=== PATIENT | male | born 2000 | race Caucasian/White ===

== ENCOUNTER 2023-03-13 08:53 | Outpatient (AMB) | payer OTHER, SELFPAY ==
--- NOTE | 2023-03-13 08:54 | A.OFFPC_ITS ---
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 Transferring care from [facility]. Medical records have not been requested and have not received. Stock Preparer Required: No Sales Support Advisor: Not Required per policy Accompanied by: Self / Same As Patient Allergies No Known Allergies Allergy (Verified 03/13/23 09:10) Medication List - Last Reconciled 03/13/23 by AMAIRANI Cho No Known Home Meds Tobacco use date assessed: 03/13/23 Dental Screening Dental Screen Date: 03/13/23 Did you have a dental visit in the last 12 months?: Yes Did you have a dental problem in the last 6 months where you did not have access to dental care?: No Was dental information given to patient?: Patient has dentist HPI HPI Comments History of Present Illness Details 22-year-old male new patient presents to [facility] to establish care. Past m edical history significant for ADHD. Patient reports has not been on medication for his ADHD and many years. Patient reports overall doing well denies any acute concerns. Denies chest pain, palpitations, shortness of breath and syncope. Denies any bowel or bladder issues. Eye exam: Recommeded every couple years unknown last pcp; [facility] [place]. Flu shot recommended annual, will obtain immunization records from [place] to evaluate for status last tetanus shot. [facility] Surgical History No pertinent past surgical history Family History (Updated 03/13/23 @ 09:10 by AMAIRANI Cho) Mother No problems noted. Father No problems noted. Social History (Updated 03/13/23 @ 09:11 by AMAIRANI Cho) Housing: House Alcohol intake: current Alcohol intake frequency: a few times a month Patient Tobacco Use Status: Never used Tobacco e-Cigarette/Vaping Use: Never Used Second Hand Smoke Exposure: No service: No Current occupational status: employed Current occupation: Construction Cognitive needs: No Hearing needs: No Vision needs: No Questionnaire PHQ-9 Over the last 2 weeks, how often have you been bothered by any of the following problems? 1. Little interest or pleasure in doing things: not at all 2. Feeling down, depressed, or hopeless: not at all 3. Trouble falling or staying asleep, or sleeping too much: not at all 4. Feeling tired or having little energy: not at all 5. Poor appetite or overeating: not at all 6. Feeling bad about yourself - or that you are a failure or have let yourself or your family down: not at all 7. Trouble concentrating on things, such as reading the newspaper or watching television: not at all 8. Moving or speaking so slowly that other people could have noticed. Or the opposite - being so fidgety or restless that you have been moving around a lot more than usual: not at all 9. Thoughts that you would be better off or of hurting yourself in some way: not at all Total score: 0 Depression Screening Interpretation: Negative 73961 - PHQ-9 Billing: Yes Source: Developed by Drs. Roge Tyson, Kera Cardona, Roland Greenfield and colleagues, with an educational florian from [employer]. Thrive Questionnaire Date Thrive assessed: 03/13/23 I am a: Patient What is your living situation today?: I have a steady place to live Within the past 12 months, did the food you bought not last and you didn't have the money to get more?: Never true Within the past 12 months, did you worry whether your food would run out before you got money to buy more?: Never true Do you have trouble paying for medicines?: No Do you have trouble getting transportation to medical appointments?: No Do you have trouble paying your heating and electricity bill?: No Do you have trouble taking care of your child, family member or friend?: No Do you have trouble with day-to-day activities such as bathing, preparing meals, shopping, managing finances, etc.?: No Are you currently unemployed and looking for a job?: No Are you interested in more education?: No Currently or been in a relationship where the following occur: no concerns reported AUDIT C Alcohol Use Questionnaire (AUDIT-C) 1. How often do you have a drink containing alcohol?: Monthly or less Total Score: 1 JAYSHREE-7 AMB Questionnaire JAYSHREE-7 Date JAYSHREE - 7 assessed: 03/13/23 Feeling nervous, anxious, or on edge: 0 = Not at all Not being able to stop or control worryin = Not at all Worrying too much about different things: 0 = Not at all Trouble relaxin = Not at all Being so restless that it is hard to sit still: 0 = Not at all Becoming easily annoyed or irritable: 0 = Not at all Feeling afraid as if something awful might happen: 0 = Not at all Total JAYSHREE-7 score (0-4 normal; 5-9 mild; 10-14 moderate; 15-21 severe): 0 Source: Developed by Drs. Roge Tyson, Kera Cardona, Roland Greenfield and colleagues, with an educational florian from [employer]. JAYSHREE-7 Assessment Billing JAYSHREE-7 Assessment Tool: JAYSHREE-7 Assessment 87783 Review of Systems Const Denies chills, Denies fatigue, Denies fever(s) and Denies poor appetite Eyes Denies no additional complaints ENT Reports Normal hearing present Card Denies chest pain, Denies syncope, Denies rapid heart rate and Denies dyspnea Resp Denies cough and Denies dyspnea GI Denies change in stool character, Denies constipation, Denies diarrhea, Denies nausea and Denies vomiting Denies dysuria, Denies urinary frequency and Denies urinary urgency Neuro Reports Normal hearing present, Denies confusion and Denies syncope Psych Denies confusion Endo Denies fatigue Physical exam (Primary Care) Vital Signs: Last Vital Signs Pulse 97 03/13/23 08:56 BP 108/60 03/13/23 08:56 Pulse Ox 96 03/13/23 08:56 Oxygen Delivery Method Room Air 03/13/23 08:56 BMI result Body Mass Index 25.6 Tobacco/Smoking Status: Tobacco use Status Tobacco use date assessed 03/13/23 03/13/23 08:56 Patient Tobacco Use Status Never used Tobacco 03/13/23 09:03 e-Cigarette/Vaping Use Never Used 03/13/23 09:03 PHQ-9: PHQ-9 Score PHQ-9: Total score 0 03/13/23 08:56 Depression Screening Interpretation: Negative Thrive Assessment: Date of Thrive Assessment Date Thrive assessed 03/13/23 03/13/23 08:56 Currently or been in a relationship where the following occur: no concerns reported Const General: No confusion Orientation/consciousness: No confusion HENMT Head: Yes normocephalic and Yes atraumatic Ears: external ears normal and TM's normal bilaterally General nose exam: Normal external nose present and Normal nasal mucous membranes and turbinates present Face and sinus: Yes normal facial exam and Yes sinuses nontender Mouth: moist mucous membranes Throat: Yes tonsils normal Eyes Conjunctivae: conjunctivae normal Sclerae: sclerae normal Pupils: Equal, round and reactive pupils present and Pupils normal by confrontation EOM: EOMs intact bilaterally Direct Ophthalmoscopy: normal light reflex Neck Neck: Yes no lymphadenopathy and Yes supple Thyroid: Thyroid normal Chest Chest palpation & inspection: normal inspection of the chest Resp Effort & Inspection: normal respiratory effort Auscultation: clear to auscultation bilaterally, no crackles, no rhonchi and no wheezes Cardio Rate: regular rate Rhythm: regular rhythm Peripheral pulses: radial pulses present and dorsalis pedis present GI Inspection: Yes normal to inspection Palpation (GI): Soft to palpation, nontender and No hepatosplenomegaly present Auscultation: normoactive bowel sounds Skin General skin exam: no rashes or lesions noted Neuro General: No confusion Cranial nerves: Yes Equal, round and reactive pupils present and Yes Normal hearing present Cognition (Neuro): normal cognition Gait exam (Neuro): Normal gait present Motor exam (neuro): 5/5 motor strength present throughout Deep tendon reflexes (DTR's): Right brachioradialis reflex intensity grade: 2+, Left brachioradialis reflex intensity grade: 2+, Right patellar reflex intensity grade: 2+ and Left patellar reflex intensity grade: 2+ Extrem General: No edema Assessment and Plan Assessment & Plan (1) ADHD: Code(s): F90.9 - Attention-deficit hyperactivity disorder, unspecified type (2) Physical exam, annual: Code(s): Z00.00 - Encounter for general adult medical examination without abnormal findings Plan: Recommend 1 year follow-up. Discussed basic blood work patient such as CMP and TSH level. Patient declined at this time. Plan Follow-up in 1 year for physical exam or sooner if needed. Coding Level of Care Code New Pt Prev Care 18-39yr([id number] Diagnoses ADHD F90.9 Physical exam, annual Z00.00 Additional Codes JAYSHREE-7 Assessment Billing - JAYSHREE-7 Assessment Tool: JAYSHREE-7 Assessment 63024 ([id number])
[2023-03-13 08:56] VITALS: BP 108/60; PULSE 97; O2SAT 96; BMI 25.6
== END 2023-03-13 09:18 | disposition home or self-care (01) ==
PROVIDERS: PCP Nurse Practitioner Family; Visit Provider Nurse Practitioner Family
DX: Z00.00 Encounter for general adult medical examination without abnormal findings (principal); F90.9 Attention-deficit hyperactivity disorder, unspecified type
CPT/HCPCS: 99385

== ENCOUNTER 2024-03-23 13:50 | Outpatient (AMB) | payer OTHER, SELFPAY ==
--- NOTE | 2024-03-23 13:52 | A.OFFPC_ITS ---
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 Intake Note: New patient to establish care Allergies No Known Allergies Allergy (Verified 03/23/24 13:55) Medication List - [facility]23[facility] No Known Home Meds Tobacco use date assessed: 03/23/24 Dental Screening Dental Screen Date: 03/23/24 Did you have a dental visit in the last 12 months?: No Did you have a dental problem in the last 6 months where you did not have access to dental care?: No Was dental information given to patient?: Patient has dentist HPI HPI Comments History of Present Illness Details 23 y/o M with ADHD, JAYSHREE, keratosis pilar is, bunion R foot, tinea pedis Social: paving and construction; 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 4 cats. Family hx: Mom and healthy. Siblings healthy. Denies sig family hx. Surgical hx: Denies Health Maintenance: Tdap today declined flu Specialists: counseling Here today to est care & for CPE. Was at [facility] in the past for PCP, records not available. ADHD was on meds in the past; has been w/o PCP. At this time, using OTC meds from [facility] but this is not working MDD/JAYSHREE: would like a referral for therapist. Feels stressed. Feels anxious. Has had a therapist in the past. Denies SI/HI. Has low motivation at times, losing interest in things. Working nights. This has affected his ability to hang out with friends/family. Sleeps fine. Using OTC antifunal for tinea pedis R foot + effect Bunion R foot, hurts sometimes. Appetite: ok. Wt stable, has gained some. Exercise: has physical job GI/: denies issues Eyes: vision is normal w/o glasses Seatbelt in the car Sexually: woman; denies STD concerns Plan Tdap today Check screening labs today Use exfoliating wash and moisturizer for arms cont OTC antifungal for feet Wear wide toe shoes; prevent pressure. Asked him to get me previous PCP records and info about ADHD and meds. Once i get this can discuss restarting meds for ADHD. RTO in 3-4 weeks to fu on aDHD/mood, sooner PRN This note is constructed using voice recognition software. While every effort has been made to ensure accuracy in senior asp net developer, still errors may have been included Sometimes, these errors may affect the content or meaning of the given sentence . [facility] Medical History (Updated 03/23/24 @ 15:10 by Yashira Mcconnell MA) No pertinent family history No pertinent past medical history Surgical History No pertinent past surgical history Family History (Updated 03/13/23 @ 09:10 by AMAIRANI Cho) Mother No problems noted. Father No problems noted. Social History (Updated 03/23/24 @ 15:11 by Yashira Mcconnell MA) Household Members: Other Household Members Other:: parents Housing: House Are you a primary manager care to a significant other at home: No Do you presently have visiting nurse or other home services: No Alcohol intake: current Alcohol intake frequency: a few times a month Patient Tobacco Use Status: Never used Tobacco e-Cigarette/Vaping Use: Never Used Second Hand Smoke Exposure: No service: No Current occupational status: employed Current occupation: Construction Cognitive needs: No Hearing needs: No Vision needs: No Questionnaire PHQ-9 Over the last 2 weeks, how often have you been bothered by any of the following problems? 2. Feeling down, depressed, or hopeless: not at all 3. Trouble falling or staying asleep, or sleeping too much: several days 4. Feeling tired or having little energy: several days 5. Poor appetite or overeating: more than half the days 6. Feeling bad about yourself - or that you are a failure or have let yourself or your family down: not at all 7. Trouble concentrating on things, such as reading the newspaper or watching television: not at all 8. Moving or speaking so slowly that other people could have noticed. Or the opposite - being so fidgety or restless that you have been moving around a lot more than usual: not at all 9. Thoughts that you would be better off or of hurting yourself in some way: not at all Depression Screening Interpretation: Negative Depression Screening Done: Yes 23345 - PHQ-9 Billing: Yes Source: Developed by Drs. Roge Tyson, Kera Cardona, Roland Greenfield and colleagues, with an educational florian from [employer]. Thrive Questionnaire Date Thrive assessed: 03/23/24 I am a: Patient What is your living situation today?: I have a steady place to live Within the past 12 months, did the food you bought not last and you didn't have the money to get more?: Never true Within the past 12 months, did you worry whether your food would run out before you got money to buy more?: Never true Do you have trouble paying for medicines?: No Do you have trouble getting transportation to medical appointments?: No Do you have trouble paying your heating and electricity bill?: No Do you have trouble taking care of your child, family member or friend?: No Do you have trouble with day-to-day activities such as bathing, preparing meals, shopping, managing finances, etc.?: No Are you currently unemployed and looking for a job?: No Are you interested in more education?: No Please select the resources that you would like help with: None Currently or been in a relationship where the following occur: No concerns reported THRIVE Score: 0 AUDIT C Alcohol Use Questionnaire (AUDIT-C) 1. How often do you have a drink containing alcohol?: 2-4 times a month 2. How many drinks containing alcohol do you have on a typical day when you are drinking?: 1 or 2 3. How often do you have six or more drinks on one occasion?: Never Total Score: 2 Score Reviewed/Action Taken: Yes JAYSHREE-7 AMB Questionnaire JAYSHREE-7 Date JAYSHREE - 7 assessed: 03/23/24 Feeling nervous, anxious, or on edge: 0 = Not at all Not being able to stop or control worryin = Not at all Worrying too much about different things: 1 = Several days Trouble relaxin = Not at all Being so restless that it is hard to sit still: 0 = Not at all Becoming easily annoyed or irritable: 0 = Not at all Feeling afraid as if something awful might happen: 0 = Not at all Total JAYSHREE-7 score (0-4 normal; 5-9 mild; 10-14 moderate; 15-21 severe): 1 Source: Developed by Drs. Roge Tyson, Kera Cardona, Roland Greenfield and colleagues, with an educational florian from [employer]. JAYSHREE-7 Assessment Billing JAYSHREE-7 Assessment Tool: JAYSHREE-7 Assessment 25775 Review of Systems Const Details: Constitutional: Denies fever. Skin: Denies rash. Eye: Denies eye pain. ENMT: Denies sore throat and nasal congestion. Respiratory: Denies shortness of breath and cough. Gastrointestinal: Denies nausea, vomiting or abdominal pain. Cardiovascular: Denies chest pain and syncope. Genitourinary: Denies dysuria. Musculoskeletal: Denies back pain and extremity pain. Neurologic: Denies headaches, confusion, and weakness. Psychiatric: Denies suicidal thoughts and substance abuse. Allergy/ Immunologic: Denies impaired immunity. Physical exam (Primary Care) Vital Signs: Last Vital Signs Pulse 58 03/23/24 14:10 Resp 14 03/23/24 14:10 BP 118/68 03/23/24 14:10 Pulse Ox 98 03/23/24 14:10 Oxygen Delivery Method Room Air 03/23/24 14:10 BMI result Body Mass Index 27.1 BMI Assessment/Plan discussion: High BMI High, discussed plan: lifestyle Tobacco/Smoking Status: Tobacco use Status Tobacco use date assessed 03/23/24 03/23/24 13:58 Patient Tobacco Use Status Never used Tobacco 03/23/24 13:57 e-Cigarette/Vaping Use Never Used 03/23/24 13:57 Depression Screening Interpretation: Negative Thrive Assessment: Date of Thrive Assessment Date Thrive assessed 03/13/23 03/23/24 13:53 Currently or been in a relationship where the following occur: No concerns reported Const Other: General: Well developed, well nourished, in no acute distress. Appears stated age. Head: Normocephalic, atraumatic. Eyes: Pupils are equal, round and reactive to light and accommodation. Conjunctivae are clear. Vision grossly normal. Ears: TMs clear AU, EACS WNL Nose: Patent, without discharge. Mouth: There are no ulcers or lesions noted. No inflammation, no post nasal drip, no plaques nor exudates. Neck: Supple, no adenopathy or thyromegaly. Lungs: Clear to auscultation bilaterally. No rales, rhonchi or wheeze noted. Good air flow in all mera. Heart: Regular rate and rhythm. No murmurs, click, rubs or gallops are noted. Abdomen: Bowel sounds present in all quadrants. The abdomen is soft, nontender, with no masses or organomegaly noted. No hernias are noted. Musculoskeletal: Joints are nontender, without swelling, redness, or effusions. Range of motion is observed to be normal. Pulses: Peripheral pulses are equal and palpable bilaterally. Extremities: No clubbing, cyanosis nor edema is noted. Bunion right foot Neurologic: Gait and station normal. Cranial Nerves 2-12 intact. Motor strength grossly symmetrical and intact. No sensory loss. Balance normal. Skin: No rashes, ulcers, or lesions noted. Turgor is good. Skin color is good. Hair and nails are without abnormalities. Keratosis pilaris bilat upper arms, tinea pedis a 2nd toe of right foot Psych: Normal eye contact, affect and mood appropriate, and normal interactions. Patient is alert and appropriate to context. Immunizations Boostrix Tdap 2.5 Lf unit-8 mcg-5 Lf/0.5 mL intramuscular syringe Performing Provider: GLORIA Boyce Performing Location: [facility] Administered by: Lillie Velásquez RN on 03/23/24 14:57 Dose Route Admin Location Dispensed Lot Number Expiration Date NDC Product Analyst 0.5 mL IM Right Deltoid 0.5 mL [id number] 03/12/25 20109-970-34 [email or web address] Given Date VIS Provided VIS Publication Date 03/23/24 Single Vaccine 21 Eligibility Eligibility Date Funding Source Not [place] Eligible 03/23/24 Private Coding Level of Care Code New Pt Prev Care 18-39yr(09638 Diagnoses Encounter for general adult medical examination without abnormal findings Z00.00 Mild episode of recurrent major depressive disorder F33.0 Major depression episode severity: mild JAYSHREE (generalized anxiety disorder) F41.1 Attention deficit hyperactivity disorder (ADHD), predominantly inattentive type F90.0 Attention deficit-hyperactivity disorder type: predominantly inattentive Keratosis pilaris L85.8 Bunion, right M21.611 Tinea pedis of right foot B35.3 Laterality: right Additional Codes JAYSHREE-7 Assessment Billing - JAYSHREE-7 Assessment Tool: JAYSHREE-7 Assessment 11459 ([id number]) Assessment & Plan Assessment & Plan (1) Encounter for general adult medical examination without abnormal findings: Code(s): Z00.00 - Encounter for general adult medical examination without abnormal findings Plan: . (2) MDD (major depressive disorder), recurrent episode: Code(s): F33.9 - Major depressive disorder, recurrent, unspecified Category: Medical Qualifiers: Major depression episode severity: mild Qualified Code(s): F33.0 - Major depressive disorder, recurrent, mild Plan: . (3) JAYSHREE (generalized anxiety disorder): Code(s): F41.1 - Generalized anxiety disorder Category: Medical Plan: . (4) ADHD: Code(s): F90.9 - Attention-deficit hyperactivity disorder, unspecified type Category: Medical Qualifiers: Attention deficit-hyperactivity disorder type: predominantly inattentive Qualified Code(s): F90.0 - Attention-deficit hyperactivity disorder, predominantly inattentive type Plan: . (5) Keratosis pilaris: Code(s): L85.8 - Other specified epidermal thickening Category: Medical Plan: . (6) Bunion, right: Code(s): M21.611 - Bunion of right foot Category: Medical Plan: . (7) Tinea pedis: Code(s): B35.3 - Tinea pedis Category: Medical Qualifiers: Laterality: right Qualified Code(s): B35.3 - Tinea pedis Plan: . Patient Instructions: Walk-In Care (Urgent Care): We Make it Easy Walk-in for urgent medical issues such as: ? Seasonal Allergies ? Insect Bites ? Cough ? Diarrhea ? Acute Asthma Attacks ? Back, Knee or Joint Pain ? Ear Infection ? Fever without a Rash ? Headaches ? Nausea ? [place], Rash or Skin Irritation ? Sore Throat ? Sports Physicals ? Vomiting Most insurances are accepted. Patients do not need to be part of the [facility] to seek care at the walk-in clinic. Locations [facility] [address] [place] [address] ? [phone] [facility] in [place] provides services to ages 18 and over. Open Thursday-Thursday: 8 a.m. to 5 p.m. and Thursday: 9 a.m. to 3 p.m.* *Hours may vary due to staffing availability. To confirm Walk-In Care hours in [place], please call [phone]. [address] [place] [address] ? [phone] [facility] in [place] provides services to ages 12 and over. Open Thursday-Thursday: 8 a.m. to 5 p.m. Hours may vary due to staffing availability. To confirm Walk-In Care hours in [place], please call [phone]. LABORATORY SERVICES: [facility] Lab ? Primary Location [address] [place] [address] Thursday through Thursday 6:00 AM ? 5:00 PM Thursday 7:00 AM ? 11:00 AM* [phone] The [facility] Lab is centrally located near the front entrance of the [facility] for easy outpatient access. Convenient parking is provided for outpatients. *Hours may vary due to staffing availability. To confirm Laboratory hours for any location, please call [phone]. Offsite Location For your convenience, we offer offsite laboratory draw stations at the following locations: [address] [place] [address] ? [address], [address] Thursday through Thursday 7:30 AM ? 1:00 PM* [phone] *Hours may vary due to staffing availability. To confirm Laboratory hours for any location, please call [phone]. [place] ? [address] Thursday through Thursday 6:00 AM ? 3:30 PM* Thursday 6:30 AM ? 3 PM* [phone] *Hours may vary due to staffing availability. To confirm Laboratory hours for any location, please call [phone] [place] [address] Thursday through Thursday 7:30 AM ? 4:00 PM* [phone] *Hours may vary due to staffing availability. To confirm Laboratory hours for any location, please call [phone] [place] [address] Thursday through 9:00 AM ? 4:00 PM* *Hours may vary due to staffing availability. To confirm Laboratory hours for any location, please call [phone]. Appointments are not necessary. Walk-ins are welcome. Like all the departments throughout the [facility], our Lab undergoes frequent reviews to ensure the quality and accuracy of test results, and our staff takes special pride in its status as a nationally accredited facility. Patient Portal: ONE PATIENT. ONE RECORD. BETTER CARE. [facility] has a fully integrated, cutting- edge mobile electronic health information system that has revolutionized the way we care for our patients and manage our organization. This system improves communication and coordination enabling us to provide safe, higher-quality care, and an overall positive experience for staff and patients. Our first priority, as always, is to deliver the highest quality care possible. The system is running in the background supporting that priority. This portal is for all [facility] and [facility] services and practices. If you are experiencing any technical difficulties with enrolling or logging into the Patient Portal please complete the [facility] Patient Portal Technical Support Form. [facility] now offers a new secure on-line interactive tool for patients to review their health information ? Patient Portal. This interactive web portal will enable patients and their families to take an active role in their care by providing easy, secure access to their health information via the internet. The Patient Portal provides patients with instant access to their health information, including laboratory results, medications, allergies, demographic information, visit history, and more. In addition to managing their own care, parents and health care proxies with authorized consent will appreciate the ability to access the records of those individuals for whom they provide care. Please note: if you wish to gain access (Proxy) to another patient?s portal, you will be required to come to the Medical Records Department in person at [facility]. Both the patient giving proxy access and the proxy will need to provide photo identification and complete the appropriate authorization. The Patient Portal also allows track their appointments online. The [facility] Patient Portal also saves patients time by allowing them to submit updates to their demographic and contact information prior to their visits. Portal email notifications will also alert patients to any new activity on their portal, such as test results and new appointments. In order to initially enroll in the [facility] Patient Portal, you will need to enter some required information including the following: ? your [facility] Medical Record number ? your personal home email address ? name ? date of Please note: In order to enroll in the [facility] Patient Portal, we need to have your email address on file in your electronic medical record. The email address needs to be specific for one person (yourself) in order for your Portal enrollment to be successful. You can update your email address in person with our Registration staff when you are registering for a hospital visit. Otherwise, you will need to come to the Health Information Management (Medical Records) Department at [facility]. We are open from Thursday ? Thursday from 7:30 a.m. ? 4:30 p.m. You will be required to present a photo id. Once you have successfully enrolled in the Patient Portal, you will receive a one-time user id and password for the Portal, sent to your email address. This will allow you to log into the Patient Portal within 99 hrs and reset your own logon id and password, and define personal security questions. Once your permanent login and password have been set, you can log into the [facility] Patient Portal at any time via the blue button above or from the Portal Logon button on any page of the [facility] website. [facility] encourage all of our patients to enroll in Patient Portal as it presents a valuable opportunity for patients and their families to actively participate in their care and stay healthy Welcome to [facility]. We look forward to working with you. Health screenings for men ages 40 to 64 You should visit your health care provider regularly, even if you feel healthy. The purpose of these visits is to: Screen for medical issues Assess your risk for future medical problems Encourage a healthy lifestyle Update vaccinations and other preventive care services Help you get to know your provider in case of an illness Information Even if you feel fine, you should still see your provider for regular checkups. These visits can help you avoid problems in the future. For example, the only way to find out if you have high blood pressure is to have it checked regularly. High blood sugar and high cholesterol level also may not have any symptoms in the early stages. Simple blood tests can check for these conditions. There are specific times when you should see your provider or receive specific health screenings. The [place] Preventive Services Task Force publishes a list of recommended screenings. Below are screening guidelines for men ages 40 to 64. BLOOD PRESSURE SCREENING Have your blood pressure checked at least once every year. Watch for blood pressure screenings in your area. Ask your provider if you can stop in to have your blood pressure checked. Ask your provider if you need your blood pressure checked more often if: You have diabetes, heart disease, kidney problems, or are overweight or have certain other health conditions You have a first-degree relative with high blood pressure You are Black Your blood pressure top number is from 120 to 129 mm Hg, or the bottom number is from 70 to 79 mm Hg If the top number is 130 mm Hg or greater or the bottom number is 80 mm Hg or greater, this is considered stage 1 hypertension. Schedule an appointment with your provider to learn how you can lower your blood pressure. Effects of age on blood pressure CHOLESTEROL SCREENING Cholesterol screening should begin at age 35 for men with no known risk factors for coronary heart disease. Repeat cholesterol screening should take place: Every 5 years for men with normal cholesterol levels More often if changes occur in lifestyle (including weight gain and diet) More often if you have diabetes, heart disease, kidney problems, or certain other conditions COLORECTAL CANCER SCREENING If you are under age 45, talk to your provider about getting screened. You may need to be screened if you have a strong family history of colon cancer or polyps. Screening may also be considered if you have risk factors such as a history of inflammatory bowel disease or polyps. If you are age 45 to 75, you should be screened for colorectal cancer. There are several screening tests available: A stool-based fecal occult blood (gFOBT) or fecal immunochemical test (FIT) every year A stool sDNA test every 1 to 3 years Flexible sigmoidoscopy every 5 years or every 10 years with stool testing FIT done every year CT colonography (virtual colonoscopy) every 5 years Colonoscopy every 10 years You may need a colonoscopy more often if you have risk factors for colorectal cancer, such as: Ulcerative colitis A personal or family history of colorectal cancer A history of growths in your colon called adenomatous polyps DENTAL EXAM Go to the dentist once or twice every year for an exam and cleaning. Your dentist will evaluate if you have a need for more frequent visits. DIABETES SCREENING All adults who do not have risk factors for diabetes should be screened starting at age 35 and repeated every 3 years. If you have other risk factors for diabetes, such as a first degree relative with diabetes, overweight or obesity, high blood pressure, prediabetes, or a history of heart disease, you may be tested more often. If you are overweight and have other risk factors, such as high blood pressure and are planning to become , screening is recommended. EYE EXAM Have an eye exam every 2 to 4 years ages 40 to 54 and every 1 to 3 years ages 55 to 64. Your provider may recommend more frequent eye exams if you have vision problems or glaucoma risk. Have an eye exam that includes an examination of your retina (back of your eye) at least every year if you have diabetes. IMMUNIZATIONS Commonly needed vaccines include: Flu shot: get one every year COVID-19 vaccine: ask your provider what is best for you Tetanus-diphtheria and acellular pertussis (Tdap) vaccine: have as one of your tetanus-diphtheria vaccines if you did not receive it as an adolescent Tetanus-diphtheria: have a booster (or Tdap) every 10 years Varicella vaccine: receive 2 doses if you never had chickenpox or the varicella vaccine and were born in 1980 or after Hepatitis B vaccine: receive 2, 3, or 4 doses, depending on your exact circumstances, if you did not receive these as a child or adolescent, until age 59 Shingles (herpes zoster) vaccine: at or after age 50 Ask your provider if you should receive other immunizations, especially if you have certain medical conditions, such as diabetes or are at increased risk for some diseases such as pneumonia. INFECTIOUS DISEASE SCREENING Screening for hepatitis C: all adults ages 18 to 79 should get a one-time test for hepatitis C. Screening for human immunodeficiency virus (HIV): all people ages 15 to 65 should get a one-time test for HIV. Depending on your lifestyle and medical history, you may need to be screened for infections such as syphilis, chlamydia, and other infections. LUNG CANCER SCREENING You should have an annual screening for lung cancer with low-dose computed tomography (LDCT) if: You are age 50 to 80 years AND You have a 20 pack-year smoking history AND You currently smoke or have quit within the past 15 years OSTEOPOROSIS SCREENING If you are age 50 to 64 and have risk factors for osteoporosis, you should discuss screening with your provider. Risk factors can include long-term steroid use, low body weight, smoking, heavy alcohol use, having a fracture after age 50, or a family history of hip fracture or osteoporosis. Osteoporosis PHYSICAL EXAM All adults should visit their provider from time to time, even if they are healthy. The purpose of these visits is to: Screen for diseases Assess risk of future medical problems Encourage a healthy lifestyle Update vaccinations and other preventive care services Maintain a relationship with a provider in case of an illness Your height, weight, and body mass index (BMI) should be checked at every exam. During your exam, your provider may ask you about: Depression and anxiety Diet and exercise Alcohol and tobacco use Safety, such as use of seat belts and smoke detectors Your medicines and risk for interactions PROSTATE CANCER SCREENING If you're 55 through 69 years old, before having the test, talk to your provider about the pros and cons of having a PSA test. Ask about: Whether screening decreases your chance of dying from prostate cancer. Whether there is any harm from prostate cancer screening, such as side effects from testing or overtreatment of cancer when discovered. Whether you have a higher risk of prostate cancer than others. If you are age 55 or younger, screening is not generally recommended. You should talk with your provider about if you have a higher risk for prostate cancer. Risk factors include: Having a family history of prostate cancer (especially a brother or father) Being If you choose to be tested, the PSA blood test is repeated over time (yearly or less often), though the best frequency is not known. Prostate examinations are no longer routinely done on men with no symptoms. Prostate cancer SKIN EXAM Your provider may check your skin for signs of skin cancer, especially if you're at high risk. People at high risk include those who have had skin cancer before, have close relatives with skin cancer, or have a weakened immune system. TESTICULAR EXAM The [place] Preventive Services Task Force (USPSTF) now recommends against performing testicular self-exams. Doing testicular self-exams has been shown to have little to no benefit.
[2024-03-23 14:10] VITALS: BP 118/68; PULSE 58; RESP 14; O2SAT 98; BMI 27.1
== END 2024-03-23 14:56 | disposition home or self-care (01) ==
PROVIDERS: PCP Nurse Practitioner Family; Visit Provider Nurse Practitioner Family
DX: Z00.00 Encounter for general adult medical examination without abnormal findings (principal); F33.0 Major depressive disorder, recurrent, mild; F41.1 Generalized anxiety disorder; F90.0 Attention-deficit hyperactivity disorder, predominantly inattentive type; L85.8 Other specified epidermal thickening; M21.611 Bunion of right foot; B35.3 Tinea pedis; Z23 Encounter for immunization

== ENCOUNTER → 2024-03-23 13:50 | Outpatient (BNVA) | payer BC, SELFPAY | PROVIDERS: PCP Nurse Practitioner Family; Visit Provider Nurse Practitioner Family | DX: Z00.00 Encounter for general adult medical examination without abnormal findings (principal); F33.0 Major depressive disorder, recurrent, mild; F41.1 Generalized anxiety disorder; F90.0 Attention-deficit hyperactivity disorder, predominantly inattentive type; L85.8 Other specified epidermal thickening; M21.611 Bunion of right foot; B35.3 Tinea pedis; Z23 Encounter for immunization | CPT/HCPCS: 90471; 90715; 96127 ==

== ENCOUNTER 2024-03-23 15:04 | Outpatient (REF) | payer OTHER, SELFPAY ==
[2024-03-23 18:21] LABS: Hematocrit 41.4 % (42.0-52.0); Hemoglobin 14.3 g/dl (14.0-18.0); Mean Corpuscular HGB Conc 34.5 g/dl (31.0-36.0); Mean Corpuscular Hemoglobin 30.2 pg (27.0-33.0); Mean Corpuscular Volume 87.5 fL (80.0-98.0); Mean Platelet Volume 10.6 fL (9.4-12.4); Platelet Count 266 X10*3/uL (160-400); Red Blood Count 4.73 X10*6/uL (4.60-5.80); Red Cell Distribution Width 11.9 % (11.0-16.0); White Blood Count 4.4 X10*3/uL (4.8-10.8)
[2024-03-23 18:34] LABS: Alanine Aminotransferase 42 U/L (0-40); Albumin Level 4.9 g/dL (3.5-5.0); Alkaline Phosphatase 92 U/L (39-117); Anion Gap 13 (12-20); Aspartate Amino Transferase 24 U/L (5-37); Bilirubin Total 0.5 mg/dL (0.0-1.0); Blood Urea Nitrogen 14 mg/dL (9-16); Calcium 9.9 mg/dL (8.4-10.2); Carbon Dioxide 27 mmol/L (22-29); Chloride 103 mmol/L (96-108); Estimated Glomerular Filt Rate > 60; Glucose Random 98 mg/dL (60-115); Potassium 3.7 mmol/L (3.3-5.1); Sodium 139 mmol/L (135-145); Total Protein 7.9 g/dL (6.5-8.0)
[2024-03-23 18:44] LABS: Amphetamine Screen Urine Not Detected (Not Detect); Barbiturates, Urine Not Detected (Not Detect); Benzodiazepines Screen Urine Not Detected (Not Detect); Buprenorphine Scr Not Detected (Not Detect); Cannabinoid Screen Urine Not Detected (Not Detect); Cocaine Screen Urine Not Detected (Not Detect); Fentanyl, urine Not Detected (Not Detect); Methadone Screen, Urine Not Detected (Not Detect); Opiate Screen Urine Not Detected (Not Detect); Oxycodone Screen Urine Not Detected (Not Detect); Phencyclidine Screen Urine Not Detected (Not Detect)
[2024-03-23 18:52] LABS: TSH reflex Free T4 0.83 uIU/mL (0.32-4.0); Vitamin D 25-OH Total 38.9 ng/mL (>30)
[2024-03-23 19:02] LABS: Folate 12.4 ng/mL (> or = 4.0); Vitamin B12 550 pg/mL (200-900)
[2024-03-23 19:20] LABS: Creatinine Urine 105.38 mg/dL; Microalbum/Creatinine Ratio Ur 5.6 ug/mg cr (<30)
[2024-03-24 05:24] LABS: Estimated Average Glucose 97 mg/dL; Hemoglobin A1C 110.5599 umol/L; Total Hemoglobin (HGBA1C) 3515.4809 umol/L
[2024-03-25 07:19] LABS: LDL Cholesterol Direct 101 mg/dL (<100)
== END 2024-03-23 15:05 | disposition home or self-care (01) ==
LOC: HO.WFDLDS 15:04
PROVIDERS: Visit Provider Nurse Practitioner Family
DX: Z00.00 Encounter for general adult medical examination without abnormal findings (principal); F41.1 Generalized anxiety disorder; F33.9 Major depressive disorder, recurrent, unspecified; F90.9 Attention-deficit hyperactivity disorder, unspecified type; Z51.81 Encounter for therapeutic drug level monitoring; Z79.899 Other long term (current) drug therapy
CPT/HCPCS: 80053; 80307; 82043; 82306; 82570; 82607; 82746; 83036; 83721; 84443; 85027

== ENCOUNTER 2024-04-15 14:59 | Outpatient (AMB) | payer OTHER, SELFPAY ==
--- NOTE | 2024-04-15 15:01 | A.OFFPC_ITS ---
Vital Signs 04/15/24 15:03 Height 5 ft 4 in Weight 158 lb BMI 27.1 BP 117/70 Blood Pressure Location Lt brachial Position Sitting Respiration 13 Pulse 93 Pulse Source Pulse Oximeter Pulse Oximetry (%) 98 Oxygen Delivery Method Room Air Intake Visit Reasons: 3-4 weeks fu ADHD 30 min Intake Note: follow lup on adhd meds Allergies No Known Allergies Allergy (Verified 04/15/24 15:26) Medication List - [facility] Known Home Meds Tobacco use date assessed: 03/23/24 Dental Screening Dental Screen Date: 03/23/24 HPI HPI Comments History of Present Illness Details 23 y/o M with ADHD, JAYSHREE, keratosis pilar is, bunion R foot, tinea pedis Social: paving and construction; 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 4 cats. Family hx: Mom and healthy. Siblings healthy. Denies sig family hx. Surgical hx: Denies Health Maintenance: Tdap declined flu Specialists: counseling Here today to fu Since last visit, he was laid off for the winter, will be able to collect and find off jobs. I was not able to get PCP records, PHUNOG was checked off as do not disclose info. Reviewed this w/ him today, he did not intend to do that. New one completed today. Still not able to pull in [employer] - invalid SSN? Not sure why this is. Referred to counseling, first appt not july. Mood is the same. Offer no new concerns. Labs reviewed w/ him, normal including UTox. Plan We will fax PHUONG and attempt to get records. Will also call [facility] for a med claim hx to see if this is helpful. Info for [facility] counseling provided. If he is able to get in sooner, advised to let me know and i can place a new referral. FU via telehealth in 4 weeks for ADHD med start, sooner PRN This note is constructed using voice recognition software. While every effort has been made to ensure accuracy in supervisor ride assembly, still errors may have been included Sometimes, these errors may affect the content or meaning of the given sentence . Total time spent caring for the patient today was 30 minutes. This includes time spent before the visit reviewing the chart, time spent during the visit, and time spent after the visit on documentation [facility] Medical History (Updated 03/23/24 @ 15:10 by Yashira Mcconnell MA) No pertinent family history No pertinent past medical history Surgical History No pertinent past surgical history Family History (Updated 03/13/23 @ 09:10 by AMAIRANI Cho) Mother No problems noted. Father No problems noted. Social History (Updated 03/23/24 @ 15:11 by Yashira Mcconnell MA) Household Members: Other Household Members Other:: parents Both parents involved: Yes Caregiver staying overnight: No Housing: House Are you a primary customer care team coach to a significant other at home: No Do you presently have visiting nurse or other home services: No 75 years or older and lives alone: No Alcohol intake: current Alcohol intake frequency: a few times a month Patient Tobacco Use Status: Never used Tobacco e-Cigarette/Vaping Use: Never Used Second Hand Smoke Exposure: No service: No Current occupational status: employed Current occupation: Construction Cognitive needs: No Hearing needs: No Vision needs: No Questionnaire PHQ-9 Over the last 2 weeks, how often have you been bothered by any of the following problems? 1. Little interest or pleasure in doing things: not at all 2. Feeling down, depressed, or hopeless: several days 3. Trouble falling or staying asleep, or sleeping too much: not at all 4. Feeling tired or having little energy: not at all 5. Poor appetite or overeating: not at all 6. Feeling bad about yourself - or that you are a failure or have let yourself or your family down: not at all 7. Trouble concentrating on things, such as reading the newspaper or watching television: more than half the days 8. Moving or speaking so slowly that other people could have noticed. Or the opposite - being so fidgety or restless that you have been moving around a lot more than usual: not at all 9. Thoughts that you would be better off or of hurting yourself in some way: not at all Total score: 3 88323 - PHQ-9 Billing: Yes Source: Developed by Drs. Roge Tyson, Kera Cardona, Roland Greenfield and colleagues, with an educational florian from [employer]. Thrive Questionnaire Date Thrive assessed: 04/15/24 I am a: Patient What is your living situation today?: I have a steady place to live Within the past 12 months, did the food you bought not last and you didn't have the money to get more?: Never true Within the past 12 months, did you worry whether your food would run out before you got money to buy more?: Never true Do you have trouble paying for medicines?: No Do you have trouble getting transportation to medical appointments?: No Do you have trouble paying your heating and electricity bill?: No Do you have trouble taking care of your child, family member or friend?: No Do you have trouble with day-to-day activities such as bathing, preparing meals, shopping, managing finances, etc.?: No Are you currently unemployed and looking for a job?: No Are you interested in more education?: No Please select the resources that you would like help with: None Currently or been in a relationship where the following occur: No concerns reported THRIVE Score: 0 AUDIT C Alcohol Use Questionnaire (AUDIT-C) 1. How often do you have a drink containing alcohol?: 2-4 times a month 2. How many drinks containing alcohol do you have on a typical day when you are drinking?: 1 or 2 3. How often do you have six or more drinks on one occasion?: Monthly Total Score: 4 JAYSHREE-7 AMB Questionnaire JAYSHREE-7 Date JAYSHREE - 7 assessed: 04/15/24 Feeling nervous, anxious, or on edge: 0 = Not at all Not being able to stop or control worryin = Several days Worrying too much about different things: 0 = Not at all Trouble relaxin = Not at all Being so restless that it is hard to sit still: 0 = Not at all Becoming easily annoyed or irritable: 0 = Not at all Feeling afraid as if something awful might happen: 0 = Not at all Total JAYSHREE-7 score (0-4 normal; 5-9 mild; 10-14 moderate; 15-21 severe): 1 Source: Developed by Drs. Roge Tyson, Kera Cardona, Roland Greenfield and colleagues, with an educational florian from [employer]. JAYSHREE-7 Assessment Billing JAYSHREE-7 Assessment Tool: JAYSHREE-7 Assessment 81013 Physical exam (Primary Care) Vital Signs: Last Vital Signs Pulse 93 04/15/24 15:03 Resp 13 04/15/24 15:03 BP 117/70 04/15/24 15:03 Pulse Ox 98 04/15/24 15:03 Oxygen Delivery Method Room Air 04/15/24 15:03 BMI result Body Mass Index 27.1 Tobacco/Smoking Status: Tobacco use Status Tobacco use date assessed 03/23/24 04/15/24 15:05 Patient Tobacco Use Status Never used Tobacco 04/15/24 15:05 e-Cigarette/Vaping Use Never Used 04/15/24 15:05 PHQ-9: PHQ-9 Score PHQ-9: Total score 3 04/15/24 15:05 Thrive Assessment: Date of Thrive Assessment Date Thrive assessed 04/15/24 04/15/24 15:05 Currently or been in a relationship where the following occur: No concerns reported Coding Level of Care Code Est Pt Level 4 (10107) Complex EM visit Add On G2211 Diagnoses Attention deficit hyperactivity disorder (ADHD), predominantly inattentive type F90.0 Attention deficit-hyperactivity disorder type: predominantly inattentive Mild episode of recurrent major depressive disorder F33.0 Major depression episode severity: mild JAYSHREE (generalized anxiety disorder) F41.1 Additional Codes JAYSHREE-7 Assessment Billing - JAYSHREE-7 Assessment Tool: JAYSHREE-7 Assessment 72746 ([id number]) Assessment & Plan Assessment & Plan (1) ADHD: Code(s): F90.9 - Attention-deficit hyperactivity disorder, unspecified type Category: Medical Qualifiers: Attention deficit-hyperactivity disorder type: predominantly inattentive Qualified Code(s): F90.0 - Attention-deficit hyperactivity disorder, predominantly inattentive type Plan: . (2) MDD (major depressive disorder), recurrent episode: Code(s): F33.9 - Major depressive disorder, recurrent, unspecified Category: Medical Qualifiers: Major depression episode severity: mild Qualified Code(s): F33.0 - Major depressive disorder, recurrent, mild Plan: . (3) JAYSHREE (generalized anxiety disorder): Code(s): F41.1 - Generalized anxiety disorder Category: Medical Plan: . Plan . Patient Instructions: [facility] [address], [place], [place] [id number] Walk-In Care (Urgent Care): We Make it Easy Walk-in for urgent medical issues such as: ? Seasonal Allergies ? Insect Bites ? Cough ? Diarrhea ? Acute Asthma Attacks ? Back, Knee or Joint Pain ? Ear Infection ? Fever without a Rash ? Headaches ? Nausea ? [place], Rash or Skin Irritation ? Sore Throat ? Sports Physicals ? Vomiting Most insurances are accepted. Patients do not need to be part of the [facility] to seek care at the walk-in clinic. Locations [facility] [place] [address] ? [phone] [facility] Walk-In Care in [place] provides services to ages 18 and over. Open Thursday-Thursday: 8 a.m. to 5 p.m. and Thursday: 9 a.m. to 3 p.m.* *Hours may vary due to staffing availability. To confirm Walk-In Care hours in [place], please call [phone]. [address] [place] [address] ? [phone] [facility] Walk-In Care in [place] provides services to ages 12 and over. Open Thursday-Thursday: 8 a.m. to 5 p.m. Hours may vary due to staffing availability. To confirm Walk-In Care hours in [place], please call [phone]. LABORATORY SERVICES: [facility] ? Primary Location [address] [place] [address] Thursday through Thursday 6:00 AM ? 5:00 PM Thursday 7:00 AM ? 11:00 AM* [phone] The [facility] is centrally located near the front entrance of the [facility] Center for easy outpatient access. Convenient parking is provided for outpatients. *Hours may vary due to staffing availability. To confirm Laboratory hours for any location, please call [phone]. Offsite Location For your convenience, we offer offsite laboratory draw stations at the following locations: [address] [place] [address] ? [facility] [address], [address] Thursday through Thursday 7:30 AM ? 1:00 PM* [phone] *Hours may vary due to staffing availability. To confirm Laboratory hours for any location, please call [phone]. [place] ? Andreina Sampson [address] Thursday through Thursday 6:00 AM ? 3:30 PM* Thursday 6:30 AM ? 3 PM* [phone] *Hours may vary due to staffing availability. To confirm Laboratory hours for any location, please call [phone]. [address] [facility] Thursday through Thursday 7:30 AM ? 4:00 PM* [phone] *Hours may vary due to staffing availability. To confirm Laboratory hours for any location, please call [phone]. [address] [facility] Thursday through 9:00 AM ? 4:00 PM* *Hours may vary due to staffing availability. To confirm Laboratory hours for any location, please call [phone]. Appointments are not necessary. Walk-ins are welcome. Like all the departments throughout the [facility], our Lab undergoes frequent reviews to ensure the quality and accuracy of test results, and our staff takes special pride in its status as a nationally accredited facility. Patient Portal: ONE PATIENT. ONE RECORD. BETTER CARE. [facility] has a fully integrated, cutting- edge mobile electronic health information system that has revolutionized the way we care for our patients and manage our organization. This system improves communication and coordination enabling us to provide safe, higher-quality care, and an overall positive experience for staff and patients. Our first priority, as always, is to deliver the highest quality care possible. The system is running in the background supporting that priority. This portal is for all [facility] services and practices. If you are experiencing any technical difficulties with enrolling or logging into the Patient Portal please complete the [facility] Patient Portal Technical Support Form. [facility] now offers a new secure on-line interactive tool for patients to review their health information ? Patient Portal. This interactive web portal will enable patients and their families to take an active role in their care by providing easy, secure access to their health information via the internet. The Patient Portal provides patients with instant access to their health information, including laboratory results, medications, allergies, demographic information, visit history, and more. In addition to managing their own care, parents and health care proxies with authorized consent will appreciate the ability to access the records of those individuals for whom they provide care. Please note: if you wish to gain access (Proxy) to another patient?s portal, you will be required to come to the Medical Records Department in person at [facility]. Both the patient giving proxy access and the proxy will need to provide photo identification and complete the appropriate authorization. The Patient Portal also allows track their appointments online. The [facility] Patient Portal also saves patients time by allowing them to submit updates to their demographic and contact information prior to their visits. Portal email notifications will also alert patients to any new activity on their portal, such as test results and new appointments. In order to initially enroll in the [facility] Patient Portal, you will need to enter some required information including the following: ? your [facility] Medical Record number ? your personal home email address ? name ? date of Please note: In order to enroll in the [facility] Patient Portal, we need to have your email address on file in your electronic medical record. The email address needs to be specific for one person (yourself) in order for your Portal enrollment to be successful. You can update your email address in person with our Registration staff when you are registering for a hospital visit. Otherwise, you will need to come to the Health Information Management (Medical Records) Department at [facility]. We are open from Thursday ? Thursday from 7:30 a.m. ? 4:30 p.m. You will be required to present a photo id. Once you have successfully enrolled in the Patient Portal, you will receive a one-time user id and password for the Portal, sent to your email address. This will allow you to log into the Patient Portal within 99 hrs and reset your own logon id and password, and define personal security questions. Once your permanent login and password have been set, you can log into the [facility] Patient Portal at any time via the blue button above or from the Portal Logon button on any page of the [facility] website. [facility] encourage all of our patients to enroll in Patient Portal as it presents a valuable opportunity for patients and their families to actively participate in their care and stay healthy Welcome to [facility]. We look forward to working with you.
[2024-04-15 15:03] VITALS: BP 117/70; PULSE 93; RESP 13; O2SAT 98; BMI 27.1
== END 2024-04-15 15:45 | disposition home or self-care (01) ==
LOC: HO.HMCFM 15:00
PROVIDERS: PCP Nurse Practitioner Family; Visit Provider Nurse Practitioner Family
DX: F90.0 Attention-deficit hyperactivity disorder, predominantly inattentive type (principal); F33.0 Major depressive disorder, recurrent, mild; F41.1 Generalized anxiety disorder

== ENCOUNTER → 2024-04-15 14:59 | Outpatient (BNVA) | payer OTHER, SELFPAY | PROVIDERS: PCP Nurse Practitioner Family; Visit Provider Nurse Practitioner Family | DX: F90.0 Attention-deficit hyperactivity disorder, predominantly inattentive type (principal); F33.0 Major depressive disorder, recurrent, mild; F41.1 Generalized anxiety disorder | CPT/HCPCS: 96127 ==

== ENCOUNTER 2024-05-11 12:32 | Outpatient (AMB) | payer OTHER, SELFPAY ==
--- NOTE | 2024-05-11 13:56 | MHC.PC.OV ---
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 Family hx: Mom and healthy. Siblings healthy. Denies sig family hx. Surgical hx: Denies Health Maintenance: Tdap declined flu Specialists: counseling Telehealth visit today to follow up on start of Concerta. Previous primary care records reviewed. Patient does have a diagnosis of ADHD along with generalized anxiety disorder. Was on Ritalin in the past. This caused excessive weight loss. Most recent medication is methylphenidate (Concerta) 18 mg. We will restart that at the same dose and titrate to effect. He has been taking since 05/02/24 daily in the AM. He reports that this has help improve his focus. The effects are lasting throughout the day. He is sleeping well. His appetite remains the same. His mood remains the same. He did not call to schedule a counseling appointment. He states he does not have the information. Plan Continue methylphenidate ER 18 mg p.o. daily. Advised that he does need monthly office visits for blood pressure and pulse monitoring along with weight checks. His next visit we will be in June. I will send in a refill for his May script when it is due. I provided him with the information for [facility] counseling via the portal. He is aware that he should call them to schedule an appointment for counseling. Return to the office in June for a med check, sooner as needed. This note is constructed using voice recognition software. While every effort has been made to ensure accuracy in spreader, still errors may have been included Sometimes, these errors may affect the content or meaning of the given sentence . Total time spent caring for the patient today was 21 minutes. This includes time spent before the visit reviewing the chart, time spent during the visit, and time spent after the visit on documentation [facility] Medical History (Updated 03/23/24 @ 15:10 by Yashira Mcconnell MA) No pertinent family history No pertinent past medical history Surgical History No pertinent past surgical history Family History (Updated 03/13/23 @ 09:10 by AMAIRANI Cho) Mother No problems noted. Father No problems noted. Social History (Updated 03/23/24 @ 15:11 by Yashira Mcconnell MA) Household Members: Other Household Members Other:: parents Both parents involved: Yes Caregiver staying overnight: No Housing: House Are you a primary inpatient care manager rn to a significant other at home: No Do you presently have visiting nurse or other home services: No 75 years or older and lives alone: No Alcohol intake: current Alcohol intake frequency: a few times a month Patient Tobacco Use Status: Never used Tobacco e-Cigarette/Vaping Use: Never Used Second Hand Smoke Exposure: No service: No Current occupational status: employed Current occupation: Construction Cognitive needs: No Hearing needs: No Vision needs: No Questionnaire Thrive Questionnaire Date Thrive assessed: 04/15/24 JAYSHREE-7 AMB Questionnaire JAYSHREE-7 Date JAYSHREE - 7 assessed: 04/15/24 Source: Developed by Drs. Roge Tyson, Kera Cardona, Roland Greenfield and colleagues, with an educational florian from [employer]. Physical exam (Primary Care) Tobacco/Smoking Status: Tobacco use Status Tobacco use date assessed 03/23/24 05/11/24 13:56 Patient Tobacco Use Status Never used Tobacco 05/11/24 13:56 e-Cigarette/Vaping Use Never Used 05/11/24 13:56 Thrive Assessment: Date of Thrive Assessment Date Thrive assessed 04/15/24 05/11/24 13:56 Telehealth Telehealth Telehealth Platform: [facility] Location of provider rendering services: practice address Location of patient: address on file Patient Identification confirmed using: Name, : Yes Telehealth method: voice only Patient verbally consented to treatment: Yes Patient verbally consented to billing insurance company: Yes Patient informed of any privacy concerns related to visit: Yes Minutes spent on Phone/Video with Pt.: 10 Coding Level of Care Code Tele Est Pt Level 3 (57312) Complex EM visit Add On G2211 Diagnoses Attention deficit hyperactivity disorder (ADHD), predominantly inattentive type F90.0 Attention deficit-hyperactivity disorder type: predominantly inattentive JAYSHREE (generalized anxiety disorder) F41.1 Mild episode of recurrent major depressive disorder F33.0 Major depression episode severity: mild Assessment & Plan Assessment & Plan (1) ADHD: Code(s): F90.9 - Attention-deficit hyperactivity disorder, unspecified type Category: Medical Qualifiers: Attention deficit-hyperactivity disorder type: predominantly inattentive Qualified Code(s): F90.0 - Attention-deficit hyperactivity disorder, predominantly inattentive type (2) JAYSHREE (generalized anxiety disorder): Code(s): F41.1 - Generalized anxiety disorder Category: Medical (3) MDD (major depressive disorder), recurrent episode: Code(s): F33.9 - Major depressive disorder, recurrent, unspecified Category: Medical Qualifiers: Major depression episode severity: mild Qualified Code(s): F33.0 - Major depressive disorder, recurrent, mild Plan .
== END 2024-05-11 14:07 | disposition home or self-care (01) ==
LOC: HO.HMCFM 12:32
PROVIDERS: PCP Nurse Practitioner Family; Visit Provider Nurse Practitioner Family
DX: F90.0 Attention-deficit hyperactivity disorder, predominantly inattentive type (principal); F41.1 Generalized anxiety disorder; F33.0 Major depressive disorder, recurrent, mild

== ENCOUNTER → 2024-05-11 12:32 | Outpatient (BNVA) | payer OTHER, SELFPAY | PROVIDERS: PCP Nurse Practitioner Family; Visit Provider Nurse Practitioner Family ==

== ENCOUNTER 2024-06-23 13:50 | Outpatient (AMB) | payer OTHER, SELFPAY ==
--- NOTE | 2024-06-23 13:52 | MHC.PC.OV ---
Vital Signs 06/23/24 13:54 Height 5 ft 4 in Weight 166 lb 4 oz BMI 28.5 BP 122/72 Blood Pressure Location Lt brachial Position Sitting Respiration 12 Pulse 92 Pulse Source Pulse Oximeter Pulse Oximetry (%) 97 Oxygen Delivery Method Room Air Intake Visit Reasons: 15 min in person med check appt due Jun 2024 Intake Note: Follow up on med check Software Implementation Project Manager Required: No Allergies No Known Allergies Allergy (Verified 06/23/24 13:53) Medication List - Last Reconciled 06/23/24 by GLORIA Boyce methylphenidate HCl ER (Concerta) 18 mg PO QAM Tobacco use date assessed: 03/23/24 Dental Screening Dental Screen Date: 03/23/24 HPI HPI Comments History of Present Illness Details 23 y/o M with ADHD, JAYSHREE, keratosis pilaris, bunion R foot, tinea pedis Social: paving and construction; 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 4 cats. Family hx: Mom and healthy. Siblings healthy. Denies sig family hx. Surgical hx: Denies Health Maintenance: Tdap declined flu Specialists: counseling The patient is a 23-year-old male presenting for a follow-up on ADHD management. He was initiated on Concerta (methylphenidate) 18 mg in April and reports good tolerance with no adverse effects on sleep, appetite, mood, or anxiety. The patient has been using the medication daily and expresses a preference to not take on weekends. There is an absence of symptoms such as abdominal pain or palpitations. He did not follow u on the counseling referral. 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 The patient notes feeling nervous, particularly when drilling in high places, and this nervousness manifests as an increased heart rate while at height. He does not report any new or worsening symptoms and plans to transition back to another company where he feels more comfortable with the work environment. He fell 1 week ago landing on his right lower leg and right hand. He reports that his pinky was hyperextended laterally. Since this time he continues with pain over the 1st knuckle. No swelling or discoloration. No home treatments. Social History - Employment: Currently involved in physically demanding bridge construction. Plans to shift to a more preferred employer soon. - Exercise: Attends the gym regularly to improve physical strength required for the job. - Weight and Nutrition: Reports cravings but no significant weight changes; attempts to establish a fitness routine. - Family: In a relationship; partner's traditions impact his dietary habits, particularly around holidays. Physical Exam General: Awake, alert. No apparent distress Eyes: Sclera and conjunctiva clear bilaterally Cardiovascular: Regular rate and rhythm Respiratory: Clear to auscultation bilaterally, no wheezes, rales, or rhonchi Right hand neurovascularly intact. Right 5th finger with full range of motion, normal strength, no obvious deformity pain over 1st joint. Mood and affect appropriate Plan - Continue Concerta 18 mg daily for ADHD management. - Review the information on [facility] and initiate contact for counseling support. - Evaluate occupational anxiety symptoms related to bridge work; consider medication for situational anxiety if symptoms persist, such as a beta-ashley. Offered and declined today. - Monitor right pinky symptoms; consider imaging or further assessments if pain worsens or persists. Imaging was offered and declined today. - three-month follow-up for ADHD medication management and wellness check. Patient was informed and verbally consented to the use of an ambient scribe for clinic note documentation during this visit. Discussion Notes During the consultation, we discussed the management of ADHD, with the patient currently stable on Concerta 18 mg, reporting adequate symptom control and absence of side effects. I provided information for [facility], encouraging the patient to reach out for sessions that might assist with managing anxiety. We spoke about potential medication options to manage his occupational anxiety tied to working at heights, emphasizing that they are available should the patient express a need. The patient was informed of the recent change in prescription refill protocols, allowing for a 90-day supply instead of monthly visits. We reviewed the importance of maintaining consistent follow-up to monitor treatment efficacy and emotional well-being, advising the patient to contact me if symptoms change. Patient Instructions - Continue taking Concerta 18 mg daily for ADHD. - Follow up with [facility] for support with anxiety. - Monitor the right pinky discomfort and notify if pain increases or persists. - Schedule and attend the next check-up in three months; reach out sooner if new symptoms arise. - Practice safety measures at work, especially when working at heights, and consider anxiety management strategies. - Maintain fitness routine and healthy nutrition, being mindful of dietary habits. - Feel free to contact me with any concerns or if any medication or emotional changes occur. This note is constructed using voice recognition software. While every effort has been made to ensure accuracy in wildland fire operations specialist, still errors may have been included Sometimes, these errors may affect the content or meaning of the given sentence . Total time spent caring for the patient today was 30 minutes. This includes time spent before the visit reviewing the chart, time spent during the visit, and time spent after the visit on documentation COUNTS INCLUDE 234 BEDS AT THE [facility] Medical History (Updated 06/23/24 @ 14:26 [facility] No pertinent family history No pertinent past medical history Surgical History No pertinent past surgical history Family History (Updated 03/13/23 @ 09:10 by AMAIRANI Cho) Mother No problems noted. Father No problems noted. Social History (Updated 03/23/24 @ 15:11 by Yashira Mcconnell MA) Household Members: Other Household Members Other:: parents Both parents involved: Yes Caregiver staying overnight: No Housing: House Are you a primary primary care coordinator to a significant other at home: No Do you presently have visiting nurse or other home services: No 75 years or older and lives alone: No Alcohol intake: current Alcohol intake frequency: a few times a month Patient Tobacco Use Status: Never used Tobacco e-Cigarette/Vaping Use: Never Used Second Hand Smoke Exposure: No service: No Current occupational status: employed Current occupation: Construction Cognitive needs: No Hearing needs: No Vision needs: No Questionnaire PHQ-9 Over the last 2 weeks, how often have you been bothered by any of the following problems? 1. Little interest or pleasure in doing things: not at all 2. Feeling down, depressed, or hopeless: not at all 3. Trouble falling or staying asleep, or sleeping too much: not at all 4. Feeling tired or having little energy: not at all 5. Poor appetite or overeating: not at all 6. Feeling bad about yourself - or that you are a failure or have let yourself or your family down: not at all 7. Trouble concentrating on things, such as reading the newspaper or watching television: not at all 8. Moving or speaking so slowly that other people could have noticed. Or the opposite - being so fidgety or restless that you have been moving around a lot more than usual: not at all 9. Thoughts that you would be better off or of hurting yourself in some way: not at all Total score: 0 Depression Screening Interpretation: Negative Depression Screening Done: Yes 45831 - PHQ-9 Billing: Yes Source: Developed by Drs. Roge Tyson, Kera Cardona, Roland Greenfield and colleagues, with an educational florian from [employer]. Thrive Questionnaire Date Thrive assessed: 06/23/24 I am a: Patient What is your living situation today?: I have a steady place to live Within the past 12 months, did the food you bought not last and you didn't have the money to get more?: Never true Within the past 12 months, did you worry whether your food would run out before you got money to buy more?: Never true Do you have trouble paying for medicines?: No Do you have trouble getting transportation to medical appointments?: No Do you have trouble paying your heating and electricity bill?: No Do you have trouble taking care of your child, family member or friend?: No Do you have trouble with day-to-day activities such as bathing, preparing meals, shopping, managing finances, etc.?: No Are you currently unemployed and looking for a job?: No Are you interested in more education?: No Please select the resources that you would like help with: None Currently or been in a relationship where the following occur: No concerns reported THRIVE Score: 0 AUDIT C Alcohol Use Questionnaire (AUDIT-C) 1. How often do you have a drink containing alcohol?: 2-4 times a month 2. How many drinks containing alcohol do you have on a typical day when you are drinking?: 3 or 4 3. How often do you have six or more drinks on one occasion?: Monthly Total Score: 5 Score Reviewed/Action Taken: Yes JAYSHREE-7 AMB Questionnaire JAYSHREE-7 Date JAYSHREE - 7 assessed: 06/23/24 Feeling nervous, anxious, or on edge: 0 = Not at all Not being able to stop or control worryin = Not at all Worrying too much about different things: 0 = Not at all Trouble relaxin = Not at all Being so restless that it is hard to sit still: 0 = Not at all Becoming easily annoyed or irritable: 0 = Not at all Feeling afraid as if something awful might happen: 0 = Not at all Total JAYSHREE-7 score (0-4 normal; 5-9 mild; 10-14 moderate; 15-21 severe): 0 Source: Developed by Drs. Roge Tyson, Kera Cardona, Roland Greenfield and colleagues, with an educational florian from [employer]. JAYSHREE-7 Assessment Billing JAYSHREE-7 Assessment Tool: JAYSHREE-7 Assessment 12921 Physical exam (Primary Care) Vital Signs: Last Vital Signs Pulse 92 06/23/24 13:54 Resp 12 06/23/24 13:54 BP 122/72 06/23/24 13:54 Pulse Ox 97 06/23/24 13:54 Oxygen Delivery Method Room Air 06/23/24 13:54 BMI result Body Mass Index 28.5 Tobacco/Smoking Status: Tobacco use Status Tobacco use date assessed 03/23/24 06/23/24 13:56 Patient Tobacco Use Status Never used Tobacco 06/23/24 13:56 e-Cigarette/Vaping Use Never Used 06/23/24 13:56 PHQ-9: PHQ-9 Score PHQ-9: Total score 0 06/23/24 13:56 Depression Screening Interpretation: Negative Thrive Assessment: Date of Thrive Assessment Date Thrive assessed 06/23/24 06/23/24 13:56 Currently or been in a relationship where the following occur: No concerns reported Coding Level of Care Code Est Pt Level 4 (72036) Complex EM visit Add On G2211 Diagnoses Attention deficit hyperactivity disorder (ADHD), predominantly inattentive type F90.0 Attention deficit-hyperactivity disorder type: predominantly inattentive Mild episode of recurrent major depressive disorder F33.0 Major depression episode severity: mild JAYSHREE (generalized anxiety disorder) F41.1 Fear of heights F40.241 Injury of right little finger, initial encounter S69.91XA Encounter type: initial encounter Additional Codes JAYSHREE-7 Assessment Billing - JAYSHREE-7 Assessment Tool: JAYSHREE-7 Assessment 22579 ([id number]) PHQ-9 - 73770 - PHQ-9 Billing: Yes ([id number]) Assessment & Plan Assessment & Plan (1) ADHD: Code(s): F90.9 - Attention-deficit hyperactivity disorder, unspecified type Category: Medical Qualifiers: Attention deficit-hyperactivity disorder type: predominantly inattentive Qualified Code(s): F90.0 - Attention-deficit hyperactivity disorder, predominantly inattentive type (2) MDD (major depressive disorder), recurrent episode: Code(s): F33.9 - Major depressive disorder, recurrent, unspecified Category: Medical Qualifiers: Major depression episode severity: mild Qualified Code(s): F33.0 - Major depressive disorder, recurrent, mild (3) JAYSHREE (generalized anxiety disorder): Code(s): F41.1 - Generalized anxiety disorder Category: Medical (4) Fear of heights: Code(s): F40.241 - Acrophobia Category: Medical (5) Injury of right little finger: Code(s): S69.91XA - Unspecified injury of right wrist, hand and finger(s), initial encounter Category: Medical Qualifiers: Encounter type: initial encounter Qualified Code(s): S69.91XA - Unspecified injury of right wrist, hand and finger(s), initial encounter Plan <del>.</del> Medications: Refilled methylphenidate HCl ER (Concerta) Partial Fill upon patient request. 18 mg PO QAM 90 tabs 0RF Patient Instructions: [facility] [address], [place] [address]
[2024-06-23 13:54] VITALS: BP 122/72; PULSE 92; RESP 12; O2SAT 97; BMI 28.5
== END 2024-06-23 14:22 | disposition home or self-care (01) ==
PROVIDERS: PCP Nurse Practitioner Family; Visit Provider Nurse Practitioner Family
DX: F90.0 Attention-deficit hyperactivity disorder, predominantly inattentive type (principal); F33.0 Major depressive disorder, recurrent, mild; F41.1 Generalized anxiety disorder; F40.241 Acrophobia; S69.91XA Unspecified injury of right wrist, hand and finger(s), initial encounter

== ENCOUNTER → 2024-06-23 13:50 | Outpatient (BNVA) | payer OTHER, SELFPAY | PROVIDERS: PCP Nurse Practitioner Family; Visit Provider Nurse Practitioner Family | DX: F90.0 Attention-deficit hyperactivity disorder, predominantly inattentive type (principal); F33.0 Major depressive disorder, recurrent, mild; F41.1 Generalized anxiety disorder; F40.241 Acrophobia; S69.91XA Unspecified injury of right wrist, hand and finger(s), initial encounter; Z79.899 Other long term (current) drug therapy | CPT/HCPCS: 96127 ==

== ENCOUNTER 2024-09-23 11:51 | Outpatient (AMB) | payer OTHER, SELFPAY ==
--- NOTE | 2024-09-23 12:15 | A.OFFPC_ITS ---
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 Allergies No Known Allergies Allergy (Verified 09/23/24 12:24) Medication List - Last Reconciled 09/23/24 by AMAIRANI Boyce-ELLIS methylphenidate HCl ER (Concerta) 18 mg PO QAM Tobacco use date assessed: 09/23/24 Dental Screening Dental Screen Date: 09/23/24 Did you have a dental visit in the last 12 months?: Yes Did you have a dental problem in the last 6 months where you did not have access to dental care?: No Was dental information given to patient?: Patient has dentist HPI HPI Comments History of Present Illness Details 23 y/o M with ADHD, JAYSHREE, keratosis pilar is, bunion R foot, tinea pedis Social: paving and construction; 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 4 cats. Family hx: Mom and healthy. Siblings healthy. Denies sig family hx. Surgical hx: Denies Health Maintenance: Tdap 03/2024 Declined flu Specialists: counseling Here today for CPE Still working nights; considering employment options ADHD and JAYSHREE sx are controlled on Concerta. Cont in counseling. Optho - last exam unsure; does not wear corrective lenses, offers no concerns. Tinea pedis better. Bunion no worse. Injured hand and finger is better Exam: General: Well developed, well nourished, in no acute distress. Appears stated age. Head: Normocephalic, atraumatic. Eyes: Pupils are equal, round and reactive to light and accommodation. Conjunctivae are clear. Vision grossly normal. Ears: TMs clear AU, EACS WNL Nose: Patent, without discharge. Mouth: There are no ulcers or lesions noted. No inflammation, no post nasal drip, no plaques nor exudates. Neck: Supple, no adenopathy or thyromegaly. Lungs: Clear to auscultation bilaterally. No rales, rhonchi or wheeze noted. Good air flow in all mera. Heart: Regular rate and rhythm. No murmurs, click, rubs or gallops are noted. Abdomen: Bowel sounds present in all quadrants. The abdomen is soft, nontender, with no masses or organomegaly noted. No hernias are noted. Musculoskeletal: Joints are nontender, without swelling, redness, or effusions. Range of motion is observed to be normal. Pulses: Peripheral pulses are equal and palpable bilaterally. Extremities: No clubbing, cyanosis nor edema is noted. Neurologic: Gait and station normal. Cranial Nerves 2-12 intact. Motor strength grossly symmetrical and intact. No sensory loss. Balance normal. Skin: No rashes, ulcers, or lesions noted. Turgor is good. Skin color is good. Hair and nails are without abnormalities. Psych: Normal eye contact, affect and mood appropriate, and normal interactions. Patient is alert and appropriate to context. Plan: Cont concerta, refill sent 90 days RTO 3 mo med chk sooner prn [facility] Medical History (Updated 09/23/24 @ 12:26 by AMAIRANI Boyce-) No pertinent family history No pertinent past medical history Surgical History No pertinent past surgical history Family History (Updated 03/13/23 @ 09:10 by AMAIRANI Cho) Mother No problems noted. Father No problems noted. Social History (Updated 03/23/24 @ 15:11 by Yashira Mcconnell MA) Household Members: Other Household Members Other:: parents Both parents involved: Yes Caregiver staying overnight: No Housing: House Are you a primary career center advisor to a significant other at home: No Do you presently have visiting nurse or other home services: No 75 years or older and lives alone: No Alcohol intake: current Alcohol intake frequency: a few times a month Patient Tobacco Use Status: Never used Tobacco e-Cigarette/Vaping Use: Never Used Second Hand Smoke Exposure: No service: No Current occupational status: employed Current occupation: Construction Cognitive needs: No Hearing needs: No Vision needs: No Questionnaire PHQ-9 Over the last 2 weeks, how often have you been bothered by any of the following problems? 1. Little interest or pleasure in doing things: not at all 2. Feeling down, depressed, or hopeless: not at all 3. Trouble falling or staying asleep, or sleeping too much: not at all 4. Feeling tired or having little energy: not at all 5. Poor appetite or overeating: not at all 6. Feeling bad about yourself - or that you are a failure or have let yourself or your family down: not at all 7. Trouble concentrating on things, such as reading the newspaper or watching television: not at all 8. Moving or speaking so slowly that other people could have noticed. Or the opposite - being so fidgety or restless that you have been moving around a lot more than usual: not at all 9. Thoughts that you would be better off or of hurting yourself in some way: not at all Total score: 0 Depression Screening Interpretation: Negative Depression Screening Done: Yes 51957 - PHQ-9 Billing: Yes Source: Developed by Drs. Roge Tyson, Kera Cardona, Roland Greenfield and colleagues, with an educational florian from [employer]. Thrive Questionnaire Date Thrive assessed: 09/23/24 I am a: Patient What is your living situation today?: I have a steady place to live Within the past 12 months, did the food you bought not last and you didn't have the money to get more?: Never true Within the past 12 months, did you worry whether your food would run out before you got money to buy more?: Never true Do you have trouble paying for medicines?: No Do you have trouble getting transportation to medical appointments?: No Do you have trouble paying your heating and electricity bill?: No Do you have trouble taking care of your child, family member or friend?: No Do you have trouble with day-to-day activities such as bathing, preparing meals, shopping, managing finances, etc.?: No Are you currently unemployed and looking for a job?: No Are you interested in more education?: No Please select the resources that you would like help with: None Currently or been in a relationship where the following occur: No concerns reported THRIVE Score: 0 AUDIT C Alcohol Use Questionnaire (AUDIT-C) 1. How often do you have a drink containing alcohol?: Never 3. How often do you have six or more drinks on one occasion?: Never Total Score: 0 Score Reviewed/Action Taken: Yes JAYSHREE-7 AMB Questionnaire JAYSHREE-7 Date JAYSHREE - 7 assessed: 09/23/24 Feeling nervous, anxious, or on edge: 0 = Not at all Not being able to stop or control worryin = Not at all Worrying too much about different things: 0 = Not at all Trouble relaxin = Not at all Being so restless that it is hard to sit still: 0 = Not at all Becoming easily annoyed or irritable: 0 = Not at all Feeling afraid as if something awful might happen: 0 = Not at all Total JAYSHREE-7 score (0-4 normal; 5-9 mild; 10-14 moderate; 15-21 severe): 0 Source: Developed by Drs. Roge Tyson, Kera Cardona, Roland Greenfield and colleagues, with an educational florian from [employer]. JAYSHREE-7 Assessment Billing JAYSHREE-7 Assessment Tool: JAYSHREE-7 Assessment 49857 Physical exam (Primary Care) Vital Signs: Last Vital Signs Temp 97.2 F 09/23/24 12:18 Pulse 54 09/23/24 12:18 Resp 12 09/23/24 12:18 BP 122/70 09/23/24 12:18 Pulse Ox 98 09/23/24 12:18 Oxygen Delivery Method Room Air 09/23/24 12:18 BMI result Body Mass Index 26.9 Tobacco/Smoking Status: Tobacco use Status Tobacco use date assessed 09/23/24 09/23/24 12:19 Patient Tobacco Use Status Never used Tobacco 09/23/24 12:19 e-Cigarette/Vaping Use Never Used 09/23/24 12:19 PHQ-9: PHQ-9 Score PHQ-9: Total score 0 09/23/24 12:19 Depression Screening Interpretation: Negative Thrive Assessment: Date of Thrive Assessment Date Thrive assessed 09/23/24 09/23/24 12:19 Currently or been in a relationship where the following occur: No concerns rep orted Coding Level of Care Code Est Pt Prev Care 18-39y(76010) Diagnoses Encounter for general adult medical examination without abnormal findings Z00.00 Attention deficit hyperactivity disorder (ADHD), predominantly inattentive type F90.0 Attention deficit-hyperactivity disorder type: predominantly inattentive JAYSHREE (generalized anxiety disorder) F41.1 Keratosis pilaris L85.8 Mild episode of recurrent major depressive disorder F33.0 Major depression episode severity: mild Additional Codes JAYSHREE-7 Assessment Billing - JAYSHREE-7 Assessment Tool: JAYSHREE-7 Assessment 30145 ([id number]) PHQ-9 - 64080 - PHQ-9 Billing: Yes ([id number]) Assessment & Plan Assessment & Plan (1) Encounter for general adult medical examination without abnormal findings: Onset Date: ~09/2024 Code(s): Z00.00 - Encounter for general adult medical examination without abnormal findings Category: Medical (2) ADHD: Code(s): F90.9 - Attention-deficit hyperactivity disorder, unspecified type Category: Medical Qualifiers: Attention deficit-hyperactivity disorder type: predominantly inattentive Qualified Code(s): F90.0 - Attention-deficit hyperactivity disorder, predominantly inattentive type (3) JAYSHREE (generalized anxiety disorder): Code(s): F41.1 - Generalized anxiety disorder Category: Medical (4) Keratosis pilaris: Code(s): L85.8 - Other specified epidermal thickening Category: Medical (5) MDD (major depressive disorder), recurrent episode: Code(s): F33.9 - Major depressive disorder, recurrent, unspecified Category: Medical Qualifiers: Major depression episode severity: mild Qualified Code(s): F33.0 - Major depressive disorder, recurrent, mild Plan . Medications: Refilled methylphenidate HCl ER (Concerta) Partial Fill upon patient request. 18 mg PO QAM 90 tabs 0RF Patient Instructions: Health screenings for men You should visit your health care provider regularly, even if you feel healthy. The purpose of these visits is to: Screen for medical issues Assess your risk for future medical problems Encourage a healthy lifestyle Update vaccinations and other preventive care services Help you get to know your provider in case of an illness Information Even if you feel fine, you should still see your provider for regular checkups. These visits can help you avoid problems in the future. For example, the only way to find out if you have high blood pressure is to have it checked regularly. High blood sugar and high cholesterol level also may not have any symptoms in the early stages. Simple blood tests can check for these conditions. There are specific times when you should see your provider or receive specific health screenings. The [place] Preventive Services Task Force publishes a list of recommended screenings. Below are screening guidelines for men ages 40 to 64. BLOOD PRESSURE SCREENING Have your blood pressure checked at least once every year. Watch for blood pressure screenings in your area. Ask your provider if you can stop in to have your blood pressure checked. Ask your provider if you need your blood pressure checked more often if: You have diabetes, heart disease, kidney problems, or are overweight or have certain other health conditions You have a first-degree relative with high blood pressure You are Black Your blood pressure top number is from 120 to 129 mm Hg, or the bottom number is from 70 to 79 mm Hg If the top number is 130 mm Hg or greater or the bottom number is 80 mm Hg or greater, this is considered stage 1 hypertension. Schedule an appointment with your provider to learn how you can lower your blood pressure. Effects of age on blood pressure CHOLESTEROL SCREENING Cholesterol screening should begin at age 35 for men with no known risk factors for coronary heart disease. Repeat cholesterol screening should take place: Every 5 years for men with normal cholesterol levels More often if changes occur in lifestyle (including weight gain and diet) More often if you have diabetes, heart disease, kidney problems, or certain other conditions COLORECTAL CANCER SCREENING If you are under age 45, talk to your provider about getting screened. You may need to be screened if you have a strong family history of colon cancer or polyps. Screening may also be considered if you have risk factors such as a history of inflammatory bowel disease or polyps. If you are age 45 to 75, you should be screened for colorectal cancer. There are several screening tests available: A stool-based fecal occult blood (gFOBT) or fecal immunochemical test (FIT) every year A stool sDNA test every 1 to 3 years Flexible sigmoidoscopy every 5 years or every 10 years with stool testing FIT done every year CT colonography (virtual colonoscopy) every 5 years Colonoscopy every 10 years You may need a colonoscopy more often if you have risk factors for colorectal cancer, such as: Ulcerative colitis A personal or family history of colorectal cancer A history of growths in your colon called adenomatous polyps DENTAL EXAM Go to the dentist once or twice every year for an exam and cleaning. Your dentist will evaluate if you have a need for more frequent visits. DIABETES SCREENING All adults who do not have risk factors for diabetes should be screened starting at age 35 and repeated every 3 years. If you have other risk factors for diabetes, such as a first degree relative with diabetes, overweight or obesity, high blood pressure, prediabetes, or a history of heart disease, you may be tested more often. If you are overweight and have other risk factors, such as high blood pressure and are planning to become , screening is recommended. EYE EXAM Have an eye exam every 2 to 4 years ages 40 to 54 and every 1 to 3 years ages 55 to 64. Your provider may recommend more frequent eye exams if you have vision problems or glaucoma risk. Have an eye exam that includes an examination of your retina (back of your eye) at least every year if you have diabetes. IMMUNIZATIONS Commonly needed vaccines include: Flu shot: get one every year COVID-19 vaccine: ask your provider what is best for you Tetanus-diphtheria and acellular pertussis (Tdap) vaccine: have as one of your tetanus-diphtheria vaccines if you did not receive it as an adolescent Tetanus-diphtheria: have a booster (or Tdap) every 10 years Varicella vaccine: receive 2 doses if you never had chickenpox or the varicella vaccine and were born in 1979 or after Hepatitis B vaccine: receive 2, 3, or 4 doses, depending on your exact circumstances, if you did not receive these as a child or adolescent, until age 59 Shingles (herpes zoster) vaccine: at or after age 50 Ask your provider if you should receive other immunizations, especially if you have certain medical conditions, such as diabetes or are at increased risk for some diseases such as pneumonia. INFECTIOUS DISEASE SCREENING Screening for hepatitis C: all adults ages 18 to 79 should get a one-time test for hepatitis C. Screening for human immunodeficiency virus (HIV): all people ages 15 to 65 should get a one-time test for HIV. Depending on your lifestyle and medical history, you may need to be screened for infections such as syphilis, chlamydia, and other infections. LUNG CANCER SCREENING You should have an annual screening for lung cancer with low-dose computed tomography (LDCT) if: You are age 50 to 80 years AND You have a 20 pack-year smoking history AND You currently smoke or have quit within the past 15 years OSTEOPOROSIS SCREENING If you are age 50 to 64 and have risk factors for osteoporosis, you should discuss screening with your provider. Risk factors can include long-term steroid use, low body weight, smoking, heavy alcohol use, having a fracture after age 50, or a family history of hip fracture or osteoporosis. Osteoporosis PHYSICAL EXAM All adults should visit their provider from time to time, even if they are healthy. The purpose of these visits is to: Screen for diseases Assess risk of future medical problems Encourage a healthy lifestyle Update vaccinations and other preventive care services Maintain a relationship with a provider in case of an illness Your height, weight, and body mass index (BMI) should be checked at every exam. During your exam, your provider may ask you about: Depression and anxiety Diet and exercise Alcohol and tobacco use Safety, such as use of seat belts and smoke detectors Your medicines and risk for interactions PROSTATE CANCER SCREENING If you're 55 through 69 years old, before having the test, talk to your provider about the pros and cons of having a PSA test. Ask about: Whether screening decreases your chance of dying from prostate cancer. Whether there is any harm from prostate cancer screening, such as side effects from testing or overtreatment of cancer when discovered. Whether you have a higher risk of prostate cancer than others. If you are age 55 or younger, screening is not generally recommended. You should talk with your provider about if you have a higher risk for prostate cancer. Risk factors include: Having a family history of prostate cancer (especially a brother or father) Being If you choose to be tested, the PSA blood test is repeated over time (yearly or less often), though the best frequency is not known. Prostate examinations are no longer routinely done on men with no symptoms. Prostate cancer SKIN EXAM Your provider may check your skin for signs of skin cancer, especially if you're at high risk. People at high risk include those who have had skin cancer before, have close relatives with skin cancer, or have a weakened immune system. TESTICULAR EXAM The [place] Preventive Services Task Force (USPSTF) now recommends against performing testicular self-exams. Doing testicular self-exams has been shown to have little to no benefit.
[2024-09-23 12:18] VITALS: BP 122/70; PULSE 54; RESP 12; TEMP 36.2; O2SAT 98; BMI 26.9
--- OUTSIDE RECORDS SUMMARY | 2024-09-23 12:46 | XMS_ITS | Encounter Summary ---
Author Organization [facility] Address [address] [place] [address] Care Team Providers Care Inspector Boiler Name Role Phone Yin, Pcp Primary Care Provider Brady Gustafson MD Primary Care Provider [phone] Encounter Details Date Type Department Care Team Description 07/28/2019 Release of Information Medical Records [address] [place] [address] Abstract, Provider Social History Tobacco Use Types Packs/Day Years Used Date Smoking Tobacco: Never Smokeless Tobacco: Never Sex Assigned at Date Recorded Not on file documented as of this encounter Plan of Treatment Not on file documented as of this encounter Visit Diagnoses Not on filedocumented in this encounter Care Teams Inspector Boiler Relationship Specialty Start Date End Date Community, Pcp PCP - General Internal Medicine 07/27/19 12/21/22 Brady Oakley MD [address] [place] [address] PCP - General Internal Medicine 12/22/22 documented as of this encounter
== END 2024-09-23 12:40 | disposition home or self-care (01) ==
LOC: HO.HMCFM 11:52
PROVIDERS: PCP Nurse Practitioner Family; Visit Provider Nurse Practitioner Family
DX: Z00.00 Encounter for general adult medical examination without abnormal findings (principal); F90.0 Attention-deficit hyperactivity disorder, predominantly inattentive type; F41.1 Generalized anxiety disorder; F33.0 Major depressive disorder, recurrent, mild; L85.8 Other specified epidermal thickening

== ENCOUNTER → 2024-09-23 11:51 | Outpatient (BNVA) | payer OTHER, SELFPAY | PROVIDERS: PCP Nurse Practitioner Family; Visit Provider Nurse Practitioner Family | DX: Z00.00 Encounter for general adult medical examination without abnormal findings (principal); F90.0 Attention-deficit hyperactivity disorder, predominantly inattentive type; F41.1 Generalized anxiety disorder; L85.8 Other specified epidermal thickening; F33.0 Major depressive disorder, recurrent, mild | CPT/HCPCS: 96127 ==

== ENCOUNTER 2025-02-10 11:29 | Outpatient (AMB) | payer BC, SELFPAY ==
--- NOTE | 2025-02-10 11:40 | A.OFFPC_ITS ---
Vital Signs 02/10/25 11:42 Height 5 ft 4 in Weight 145 lb 8 oz BMI 25.0 BP 110/68 Blood Pressure Location Rt brachial Position Sitting Respiration 12 Pulse 66 Pulse Source Pulse Oximeter Temp 97.2 F Temp Source Temporal Artery Scan Pulse Oximetry (%) 98 Oxygen Delivery Method Room Air Intake Visit Reasons: 3M ADHD Intake Note: Juvenal present in the office today for a 3 month follow up to his ADHD. Allergies No Known Allergies Allergy (Verified 02/10/25 12:19) Medication List - Last Reconciled 02/10/25 by Annalise Martinez, [facility] AGENT- methylphenidate HCl ER (Concerta) 18 mg PO QAM Tobacco use date assessed: 02/10/25 Dental Screening Dental Screen Date: 02/10/25 Did you have a dental visit in the last 12 months?: No Did you have a dental problem in the last 6 months where you did not have access to dental care?: No Was dental information given to patient?: Patient declined HPI HPI Comments History of Present Illness Details 24 y/o M with ADHD, JAYSHREE, keratosis pilar is, bunion R foot, tinea pedis Social: paving and construction; 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 4 cats. Family hx: Mom and healthy. Siblings healthy. Denies sig family hx. Surgical hx: Denies Health Maintenance: Tdap 03/2024 Declined flu Specialists: counseling Here today for ADHD fu, routine. Well controlled on Concerta, Not taking on weekends Appetite is stable; wt down a little. Sleep - waking at times, but not as bad as before. JAYSHREE remains. Will be moving in w/ Girlfriend and a room mate. Wants Cat to move w/ him. Remains in counseling. Denies SI/HI. Exam: Awake alert NAD PERRLA RRR LS CTAB Mood and affect appropriate Patient is aware they are being prescribed a controlled substance. They were educated that this medication does require routine monthly office visits to monitor weight, blood pressure, heart rate and to screen for any signs of abuse or misuse. They were educated that they may be subject to random pill counts and/or U tox screenings. The prescription drug monitoring program we will be monitored at each visit to further screen for signs of abuse or misuse to include filling prescriptions at other physician's offices. The patient should maintain prescription refills of the same local pharmacy and advised the provider of any changes immediately. If at any time there is a concern for abuse or misuse or if there are any signs of side effects such as elevated blood pressure, elevated heart rate or weight loss patient is made aware that this medication will be discontinued. The patient is aware of the above and is willing to proceed. Plan: Cont concerta, refill sent 90 days RTO 3 mo med chk sooner prn PFSH Medical History (Updated 09/23/24 @ 12:26 by AMAIRANI Boyce-) No pertinent family history No pertinent past medical history Surgical History No pertinent past surgical history Family History Mother No problems noted. Father No problems noted. Social History (Updated 02/10/25 @ 11:42 by Jamaica Israel MA) Household Members: Other Household Members Other:: parents Both parents involved: Yes Caregiver staying overnight: No Housing: House Are you a primary career services representative to a significant other at home: No Do you presently have visiting nurse or other home services: No 75 years or older and lives alone: No Alcohol intake: current Alcohol intake frequency: a few times a month Patient Tobacco Use Status: Never used Tobacco e-Cigarette/Vaping Use: Never Used Second Hand Smoke Exposure: No Use of substances other than those prescribed or required for medical reasons: No service: No Current occupational status: employed Current occupation: Construction Cognitive needs: No Hearing needs: No Vision needs: No Questionnaire Thrive Questionnaire Date Thrive assessed: 06/23/24 I am a: Patient What is your living situation today?: I have a steady place to live Within the past 12 months, did the food you bought not last and you didn't have the money to get more?: Never true Within the past 12 months, did you worry whether your food would run out before you got money to buy more?: Never true Do you have trouble paying for medicines?: No Do you have trouble getting transportation to medical appointments?: No Do you have trouble paying your heating and electricity bill?: No Do you have trouble taking care of your child, family member or friend?: No Do you have trouble with day-to-day activities such as bathing, preparing meals, shopping, managing finances, etc.?: No Are you currently unemployed and looking for a job?: No Are you interested in more education?: No Please select the resources that you would like help with: None Currently or been in a relationship where the following occur: No concerns reported THRIVE Score: 0 JAYSHREE-7 AMB Questionnaire JAYSHREE-7 Date JAYSHREE - 7 assessed: 09/23/24 Source: Developed by Drs. Roge Tyson, Kera Cardona, Roland Greenfield and colleagues, with an educational florian from [employer]. Physical exam (Primary Care) Vital Signs: Last Vital Signs Temp 97.2 F 02/10/25 11:42 Pulse 66 02/10/25 11:42 Resp 12 02/10/25 11:42 BP 110/68 02/10/25 11:42 Pulse Ox 98 02/10/25 11:42 Oxygen Delivery Method Room Air 02/10/25 11:42 BMI result Body Mass Index 25.0 Tobacco/Smoking Status: Tobacco use Status Tobacco use date assessed 02/10/25 02/10/25 11:44 Patient Tobacco Use Status Never used Tobacco 02/10/25 11:44 e-Cigarette/Vaping Use Never Used 02/10/25 11:44 Thrive Assessment: Date of Thrive Assessment Date Thrive assessed 06/23/24 02/10/25 11:44 Currently or been in a relationship where the following occur: No concerns reported Coding Level of Care Code Est Pt Level 3 (41145) Complex EM visit Add On G2211 Diagnoses Attention deficit hyperactivity disorder (ADHD), predominantly inattentive type F90.0 Attention deficit-hyperactivity disorder type: predominantly inattentive Mild episode of recurrent major depressive disorder F33.0 Major depression episode severity: mild JAYSHREE (generalized anxiety disorder) F41.1 Assessment & Plan Assessment & Plan (1) ADHD: Code(s): F90.9 - Attention-deficit hyperactivity disorder, unspecified type Category: Medical Qualifiers: Attention deficit-hyperactivity disorder type: predominantly inattentive Qualified Code(s): F90.0 - Attention-deficit hyperactivity disorder, predominantly inattentive type (2) MDD (major depressive disorder), recurrent episode: Code(s): F33.9 - Major depressive disorder, recurrent, unspecified Category: Medical Qualifiers: Major depression episode severity: mild Qualified Code(s): F33.0 - Major depressive disorder, recurrent, mild (3) JAYSHREE (generalized anxiety disorder): Code(s): F41.1 - Generalized anxiety disorder Category: Medical Plan . Medications: Refilled methylphenidate HCl ER (Concerta) Partial Fill upon patient request. 18 mg PO QAM 90 tabs 0RF
[2025-02-10 11:42] VITALS: BP 110/68; PULSE 66; RESP 12; TEMP 36.2; O2SAT 98; BMI 25.0
--- OUTSIDE RECORDS SUMMARY | 2025-02-10 12:30 | XMS_ITS | Clinical Summary ---
Author Organization [employer] [facility]ly [facility] Address [address] [place], [place] [id number] Phone Care Team Providers Care [id number] Tank Crewman Name Role Phone Pcp, Unknown Primary Care Provider Unavailabl e Social History Tobacco Use Types Packs/Day Years Used Date Smoking Tobacco: Never Assessed Sex and Gender Information Value Date Recorded Sex Assigned at Not on file Legal Sex Male 10:49 AM EDT Gender Identity Not on file Sexual Orientation Not on file Plan of Treatment Not on file Medical Devices Not on file Insurance [facility] Address[facility] [id number] [place] [address] [facility] Address[facility] [address] [address] [facility] [place] [place] [address] [facility] [employer] [facility] Address: [facility] [id number] [place] [address] Care Teams M1A1 Tank Crewman Relationship Specialty Start Date End Date Pcp, Unknown PCP - General 10/09/22 Additional Source Comments The information contained in this document represents components of the legal health record. It is not the complete legal health record.[facility]
== END 2025-02-10 13:06 | disposition home or self-care (01) ==
LOC: HO.HMCFM 11:30
PROVIDERS: PCP Nurse Practitioner Family; Visit Provider Nurse Practitioner Family
DX: F90.0 Attention-deficit hyperactivity disorder, predominantly inattentive type (principal); F33.0 Major depressive disorder, recurrent, mild; F41.1 Generalized anxiety disorder

== ENCOUNTER 2025-04-17 14:55 | Outpatient (AMB) | payer BC, SELFPAY ==
--- NOTE | 2025-04-17 14:58 | A.OFFPC_ITS ---
Vital Signs 04/17/25 15:00 Height 5 ft 4 in Weight 153 lb 4 oz BMI 26.3 BP 122/68 Blood Pressure Location Lt brachial Position Sitting Respiration 12 Pulse 71 Pulse Source Pulse Oximeter Temp 97.2 F Temp Source Oral Pulse Oximetry (%) 99 Oxygen Delivery Method Room Air Intake Visit Reasons: floow up from 02/10 Intake Note: Follow up Architecture Manager Required: No Allergies No Known Allergies Allergy (Verified 04/17/25 14:58) Medication List - Last Reconciled 04/17/25 by GLORIA Boyce methylphenidate HCl ER (Concerta) 18 mg PO QAM Tobacco use date assessed: 04/17/25 Dental Screening Dental Screen Date: 04/17/25 Did you have a dental visit in the last 12 months?: Yes Did you have a dental problem in the last 6 months where you did not have access to dental care?: No Was dental information given to patient?: Patient has dentist HPI HPI Comments History of Present Illness Details 24 y/o M with ADHD, JAYSHREE, keratosis pilar is, bunion R foot, tinea pedis Social: paving and construction; 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 4 cats. Family hx: Mom and healthy. Siblings healthy. Denies sig family hx. Surgical hx: Denies Health Maintenance: Tdap 03/2024 Declined flu Specialists: counseling History of Present Illness The patient is a 24-year-old male presenting for a routine follow-up for management of Attention-Deficit Hyperactivity Disorder (ADHD). Attention-Deficit Hyperactivity Disorder: - The patient is managed on Concerta 18 mg, which he takes daily on . - He reports the medication is working w ell and denies any adverse effects on his mood. Anxiety: - The patient reports his anxiety is int ermittent and has improved since his last visit, with fewer triggering events. - He continues to see his therapist, and they have mutually decided to change sessions to every other week. Past Medical History - Attention-Deficit Hyperactivity Disord er - History of anxiety Review of Systems - CONSTITUTIONAL: Reports stable weight. Appetite is fair; he often skips breakfast but eats lunch and dinner. - PSYCHIATRIC: Reports intermittent anxi ety. Denies adverse mood changes from medication. Patient reports anxiety is on and off, related to recent move and life changes. Continues to see a therapist. Mood not adversely affected by current medication (Concerta). - NEUROLOGIC: Reports an irregular sleep pattern but states he is trying to improve it. Physical Exam General: Well developed, well nourished, in no acute distress. Appears stated age. Head: Normocephalic, atraumatic. Eyes: Pupils are equal, round and reactive to light and accommodation. Conjunctivae are clear. Vision grossly normal. Lungs: Clear to auscultation bilaterally. No rales, rhonchi or wheeze noted. Good air flow in all mera. Heart: Regular rate and rhythm. No murmurs, click, rubs or gallops are noted. Musculoskeletal: Joints are nontender, without swelling, redness, or effusions. Pulses: Peripheral pulses are equal and palpable bilaterally. Extremities: No clubbing, cyanosis nor edema is noted. Psych: Mood and affect appropriate. Medical Decision Making The patient is a 24-year-old male with stable ADHD on his current regimen of Concerta 18 mg on weekdays. He reports the medication is effective and denies negative mood effects. His anxiety has improved with fewer life stressors, and he continues with therapy on a bi-weekly basis. The patient's social situation has stabilized, including moving in with his girlfriend. Given his stability and the medication's efficacy, the plan is to continue the current treatment. A 90-day refill will be sent to his preferred pharmacy. He was counseled on updating his insurance and contact information with the front desk assistant. He declined the annual influenza vaccine. Follow-up is scheduled for September. Plan 1. Attention-Deficit Hyperactivity Disor gwendolyn - The patient reports that Concerta 18 m g taken on weekdays is effective and well-tolerated. - Will continue the current medication r egimen. - A 90-day electronic prescription for C oncerta 18 mg will be sent to the [facility] in [place]. - The patient was instructed to use the patient portal for refill requests to avoid running out of medication. Patient is aware they are being prescribed a controlled substance. They were educated that this medication does require routine monthly office visits to monitor weight, blood pressure, heart rate and to screen for any signs of abuse or misuse. They were educated that they may be subject to random pill counts and/or U tox screenings. The prescription drug monitoring program we will be monitored at each visit to further screen for signs of abuse or misuse to include filling prescriptions at other physician's offices. The patient should maintain prescription refills of the same local pharmacy and advised the provider of any changes immediately. If at any time there is a concern for abuse or misuse or if there are any signs of side effects such as elevated blood pressure, elevated heart rate or weight loss patient is made aware that this medication will be discontinued. The patient is aware of the above and is willing to proceed. 2. Health Maintenance - The patient declined the annual influe nza vaccine. - Advised the patient to update his insu muna information (add secondary plan) and phone number with the front desk assistant staff. - He was informed about the walk-in clin ic in [place] for any acute needs that may arise. - Follow-up scheduled in September. Patient Instructions - Continue taking Concerta 18 mg on week days as you have been. - I am sending a 90-day refill of your C oncerta to the [facility] on [address] in [place]. - Please speak with the staff at the [facility] desk to update your phone number and add your second insurance plan to your file. - You have declined the flu shot for thi s year. - [facility] - If you need anything before your next appointment, please send a message through the patient portal. - Remember that there is a walk-in clini c in [place] open on weekends if you get sick. Consent Patient was informed and verbally consented to the use of an ambient scribe for clinic note documentation during this visit. [facility] Medical History (Updated 04/18/25 @ 07:02 by [facility]IRANI [facility]EN[facility]) No pertinent family history No pertinent past medical history Surgical History No pertinent past surgical history Family History Mother No problems noted. Father No problems noted. Social History (Updated 02/10/25 @ 11:42 by Jamaica Israel MA) Household Members: Other Household Members Other:: parents Both parents involved: Yes Caregiver staying overnight: No Housing: House Are you a primary day care home provider to a significant other at home: No Do you presently have visiting nurse or other home services: No 75 years or older and lives alone: No Alcohol intake: current Alcohol intake frequency: a few times a month Patient Tobacco Use Status: Never used Tobacco e-Cigarette/Vaping Use: Never Used Second Hand Smoke Exposure: No service: No Current occupational status: employed Current occupation: Construction Cognitive needs: No Hearing needs: No Vision needs: No Questionnaire Thrive Questionnaire Date Thrive assessed: 04/17/25 I am a: Patient What is your living situation today?: I have a steady place to live Within the past 12 months, did the food you bought not last and you didn't have the money to get more?: Never true Within the past 12 months, did you worry whether your food would run out before you got money to buy more?: Never true Do you have trouble paying for medicines?: No Do you have trouble getting transportation to medical appointments?: No Do you have trouble paying your heating and electricity bill?: No Do you have trouble taking care of your child, family member or friend?: No Do you have trouble with day-to-day activities such as bathing, preparing meals, shopping, managing finances, etc.?: No Are you currently unemployed and looking for a job?: No Are you interested in more education?: No Please select the resources that you would like help with: None Currently or been in a relationship where the following occur: No concerns reported THRIVE Score: 0 JAYSHREE-7 AMB Questionnaire JAYSHREE-7 Date JAYSHREE - 7 assessed: 04/17/25 Source: Developed by Drs. Roge Tyson, Kera Cardona, Roland Greenfield and colleagues, with an educational florian from [employer]. Physical exam (Primary Care) Vital Signs: Last Vital Signs Temp 97.2 F 04/17/25 15:00 Pulse 71 04/17/25 15:00 Resp 12 04/17/25 15:00 BP 122/68 04/17/25 15:00 Pulse Ox 99 04/17/25 15:00 Oxygen Delivery Method Room Air 04/17/25 15:00 BMI result Body Mass Index 26.3 Tobacco/Smoking Status: Tobacco use Status Tobacco use date assessed 04/17/25 04/17/25 15:02 Patient Tobacco Use Status Never used Tobacco 04/17/25 15:02 e-Cigarette/Vaping Use Never Used 04/17/25 15:02 Thrive Assessment: Date of Thrive Assessment Date Thrive assessed 04/17/25 04/17/25 15:02 Currently or been in a relationship where the following occur: No concerns reported Coding Level of Care Code Est Pt Level 3 (30531) Complex EM visit Add On G2211 Diagnoses Attention deficit hyperactivity disorder (ADHD), predominantly inattentive type F90.0 Attention deficit-hyperactivity disorder type: predominantly inattentive Mild episode of recurrent major depressive disorder F33.0 Major depression episode severity: mild JAYSHREE (generalized anxiety disorder) F41.1 Influenza vaccination declined Z28.21 Assessment & Plan Assessment & Plan (1) ADHD: Code(s): F90.9 - Attention-deficit hyperactivity disorder, unspecified type Category: Medical Qualifiers: Attention deficit-hyperactivity disorder type: predominantly inattentive Qualified Code(s): F90.0 - Attention-deficit hyperactivity disorder, predominantly inattentive type (2) MDD (major depressive disorder), recurrent episode: Code(s): F33.9 - Major depressive disorder, recurrent, unspecified Category: Medical Qualifiers: Major depression episode severity: mild Qualified Code(s): F33.0 - Major depressive disorder, recurrent, mild (3) JAYSHREE (generalized anxiety disorder): Code(s): F41.1 - Generalized anxiety disorder Category: Medical (4) Influenza vaccination declined: Onset Date: ~04/18/25 Code(s): Z28.21 - Immunization not carried out because of patient refusal Category: Medical Plan . Medications: Refilled methylphenidate HCl ER (Concerta) Partial Fill upon patient request. 18 mg PO QAM 90 tabs 0RF
[2025-04-17 15:00] VITALS: BP 122/68; PULSE 71; RESP 12; TEMP 36.2; O2SAT 99; BMI 26.3
== END 2025-04-17 15:22 | disposition home or self-care (01) ==
LOC: HO.HMCFM 14:56
PROVIDERS: PCP Nurse Practitioner Family; Visit Provider Nurse Practitioner Family
DX: F90.0 Attention-deficit hyperactivity disorder, predominantly inattentive type (principal); F33.0 Major depressive disorder, recurrent, mild; F41.1 Generalized anxiety disorder; Z28.21 Immunization not carried out because of patient refusal